=== PATIENT | female | born 1940 | race Caucasian/White ===

== ENCOUNTER 2017-10-12 09:44 | Observation (INO) | payer MEDICARE ==
[~2017-10-12] VITALS: Ht 165.1 cm; Wt 109.6 kg
[2017-10-12] MEDS ORDERED: SODIUM CHLORIDE 0.9% 1000ML 1,000 ML IV ONE (09:55)
[2017-10-12 10:02] LABS: BASOPHILS % (AUTO) 0.6 % (0.0-5.0); EOSINOPHILS % (AUTO) 3.2 % (0.0-8.0); LYMPHOCYTES % (AUTO) 16.2 % (21.0-51.0); MEAN CORPUSCULAR HEMOGLOBIN 28.3 pg (27.0-33.0); MEAN CORPUSCULAR HGB CONC 33.3 g/dL (32.0-36.0); MEAN CORPUSCULAR VOLUME 84.9 fL (79-99); MONOCYTES % (AUTO) 8.3 % (3.0-13.0); NEUTROPHILS % (AUTO) 71.7 % (40.0-77.0); PLATELET COUNT (AUTO) 361 K/uL (130-400); RED BLOOD CELL COUNT(AUTO) 4.24 MIL/uL (4.00-5.50); RED CELL DISTRIBUTION WIDTH 14.7 % (11.0-15.5); WHITE BLOOD COUNT (AUTO) 14.3 K/uL (4.8-10.8)
[2017-10-12 10:10] LABS: CREATININE 1.2 mg/dL (0.5-1.5); POTASSIUM 3.6 mmol/L (3.5-5.1)
[2017-10-12 10:15] LABS: ALBUMIN 3.7 g/dL (3.5-5.0); BILIRUBIN,TOTAL 0.6 mg/dL (0.2-1.0); INR 0.94 (0.85-1.15); PARTIAL THROMBOPLASTIN TIME 21.5 SEC (26.3-35.5); PROTHROMBIN TIME 9.9 SEC (9.6-11.6); TOTAL PROTEIN, SERUM 7.1 g/dL (6.0-8.3)
[2017-10-12] MEDS ORDERED: MAG HYDROX/AL HYDROX/SIMETH ES 30 ML SUSP UDCUP PO PRN (12:30)
[2017-10-12] MEDS ORDERED: LACTULOSE 20 GM/30 ML UDCUP PO PRN (12:30)
[2017-10-12] MEDS ORDERED: ONDANSETRON HCL 4 MG/2 ML VIAL IV PRN (12:30)
[2017-10-12] MEDS ORDERED: GUAIFENESIN-DM 200/20 MG 10 ML PO PRN (12:30)
[2017-10-12] MEDS ORDERED: ACETAMINOPHEN 325 MG TAB PO PRN ×2 (12:30)
[2017-10-12 14:05] VITALS: BP 167/70
[2017-10-12] MEDS ORDERED: AMLO2.5T PO (15:47)
[2017-10-12] MEDS ORDERED: IPRA4AER IH (15:47)
[2017-10-12] MEDS ORDERED: FLUT110HFA IH (15:47)
[2017-10-12] MEDS ORDERED: MONT10TA24 PO (15:47)
[2017-10-12] MEDS ORDERED: CALC-1115 PO (15:47)
[2017-10-12] MEDS ORDERED: VENL75TA63 PO (15:47)
[2017-10-12] MEDS ORDERED: ATOR40TA69 PO (15:47)
[2017-10-12] MEDS ORDERED: LORA10CA9 PO (15:47)
[2017-10-12] MEDS ORDERED: LEVO50TA11 PO (15:47)
[2017-10-12] MEDS ORDERED: METF500T6 PO (15:47)
[2017-10-12] MEDS ORDERED: ESOM40CA PO (15:47)
[2017-10-12] MEDS ORDERED: LOSA1TAB42 PO (15:47)
[2017-10-12 16:30] VITALS: BP 152/59
[2017-10-12 20:12] VITALS: BP 163/77
[2017-10-12] MEDS: FAMOTIDINE/PF 20 MG/2 ML VIAL IV SCH (20:42)
[2017-10-13] MEDS: MONTELUKAST SODIUM 10 MG TAB PO SCH ×2 (00:16→19:41)
[2017-10-13] MEDS: BENZONATATE 100 MG CAPSULE PO SCH ×4 (00:16→19:41)
[2017-10-13] MEDS: METHYLPREDNISOLONE SOD SUCC 125MG/2ML VIAL IVP SCH ×2 (00:16→19:35)
[2017-10-13] MEDS: AZITHROMYCIN 500MG+NS 250ML 250 ML IV SCH ×2 (00:16→19:41)
[2017-10-13 00:25] VITALS: BP 126/64
[2017-10-13] MEDS: IPRATROPIUM/ALBUTEROL SULFATE 3 ML SOLUTION IH SCH ×4 (02:27→20:37)
[2017-10-13 05:23] VITALS: BP 141/66
[2017-10-13 05:36] LABS: INFLUENZA TYPE A NEGATIVE FOR TYPE A (NEG); INFLUENZA TYPE B NEGATIVE FOR TYPE B (NEG)
[2017-10-13] MEDS: LEVOTHYROXINE 50 MCG TABLET PO SCH (06:27)
[2017-10-13] MEDS: INSULIN HUMULIN R 100 UNIT/ML 3ML SQ SCH ×4 (06:29→21:00)
[2017-10-13] MEDS: BUDESONIDE 0.5 MG/2 ML INH IH SCH ×2 (07:08→20:30)
[2017-10-13 07:38] VITALS: BP 151/77
[2017-10-13] MEDS ORDERED: METHYLPREDNISOLONE SOD SUCC 125MG/2ML VIAL IVP SCH (09:00)
[2017-10-13] MEDS: METFORMIN HCL 500 MG TABLET PO SCH ×2 (11:04→16:46)
[2017-10-13] MEDS: HYDROCHLOROTHIAZIDE 25 MG TABLET PO SCH (11:05)
[2017-10-13] MEDS: LOSARTAN 100 MG TABLET PO SCH (11:05)
[2017-10-13] MEDS: CALCIUM 600 + VITAMIN D 400 TABLET PO SCH (11:05)
[2017-10-13] MEDS: AMLODIPINE BESYLATE 2.5 MG TAB PO SCH (11:05)
[2017-10-13] MEDS: LORATADINE 10 MG TABLET PO SCH (11:05)
[2017-10-13] MEDS: VENLAFAXINE HCL 75 MG TAB PO SCH (11:05)
[2017-10-13] MEDS: FAMOTIDINE/PF 20 MG/2 ML VIAL IV SCH ×2 (11:06→19:41)
[2017-10-13 11:40] VITALS: BP 140/65
[2017-10-13 16:45] VITALS: BP 134/72
[2017-10-13 20:00] VITALS: BP 150/64
[2017-10-13] MEDS ORDERED: ATORVASTATIN CALCIUM 40 MG TABLET PO SCH (21:00)
[2017-10-14] VITALS: BP 152/62
[2017-10-14] MEDS: IPRATROPIUM/ALBUTEROL SULFATE 3 ML SOLUTION IH SCH ×3 (01:08→11:56)
[2017-10-14 04:00] VITALS: BP 135/64
[2017-10-14] MEDS: INSULIN HUMULIN R 100 UNIT/ML 3ML SQ SCH ×2 (06:13→11:15)
[2017-10-14] MEDS: BUDESONIDE 0.5 MG/2 ML INH IH SCH (06:24)
[2017-10-14] MEDS: BENZONATATE 100 MG CAPSULE PO SCH (06:32)
[2017-10-14] MEDS: LEVOTHYROXINE 50 MCG TABLET PO SCH (06:32)
[2017-10-14 07:33] VITALS: BP 140/61
[2017-10-14] MEDS: VENLAFAXINE HCL 75 MG TAB PO SCH (09:00)
[2017-10-14] MEDS: LOSARTAN 100 MG TABLET PO SCH (09:31)
[2017-10-14] MEDS: CALCIUM 600 + VITAMIN D 400 TABLET PO SCH (09:31)
[2017-10-14] MEDS: METFORMIN HCL 500 MG TABLET PO SCH (09:32)
[2017-10-14] MEDS: HYDROCHLOROTHIAZIDE 25 MG TABLET PO SCH (09:32)
[2017-10-14] MEDS: LORATADINE 10 MG TABLET PO SCH (09:33)
[2017-10-14] MEDS: AMLODIPINE BESYLATE 2.5 MG TAB PO SCH (09:33)
[2017-10-14] MEDS: FAMOTIDINE/PF 20 MG/2 ML VIAL IV SCH (09:33)
[2017-10-14 11:23] VITALS: BP 140/64
[2017-10-14] MEDS ORDERED: AZIT500T4 PO (11:48)
== END 2017-10-14 13:57 | disposition home or self-care (01) ==
LOC: EDH 09:44 → EDHIP 12:16 → 4BH 14:10
PROVIDERS: ADMIT Family Medicine; ATTEND Family Medicine
DX: R55 Syncope and collapse (principal); J20.9 Acute bronchitis, unspecified; J42 Unspecified chronic bronchitis; E78.5 Hyperlipidemia, unspecified; I10 Essential (primary) hypertension; E11.9 Type 2 diabetes mellitus without complications; E03.9 Hypothyroidism, unspecified; Z96.651 Presence of right artificial knee joint; Z90.710 Acquired absence of both cervix and uterus; R42 Dizziness and giddiness
CPT/HCPCS: 36415; 70450; 71010; 80053; 82550; 82948 ×9; 83880; 84484; 85025; 85610; 85730; 87804 ×2; 93005; 93306; 93880; 94640 ×10; 94664; 96365; 96366; 96375; 96376 ×2; 99285; G0378 ×50; J0456 ×2; J1815 ×2; J2930; J3490 ×4; J7030

== ENCOUNTER 2018-01-18 10:05 | Inpatient (IN) | payer MEDICARE ==
[~2018-01-18] VITALS: Ht 165.1 cm; Wt 107.1 kg
[~2018-01-18 10:05] MED LIST: AMLO2.5T PO; ATOR40TA69 PO; AZIT500T4 PO; CALC-1115 PO; ESOM40CA PO; FLUT110HFA IH; IPRA4AER IH; LEVO50TA11 PO; LORA10CA9 PO; LOSA1TAB42 PO; METF500T6 PO; MONT10TA24 PO; VENL75TA63 PO
[2018-01-18] MEDS ORDERED: SODIUM CHLORIDE 0.9% 500ML 500 ML IV ONE (10:22)
[2018-01-18 10:31] LABS: BASOPHILS % (AUTO) 0.8 % (0.0-5.0); EOSINOPHILS % (AUTO) 2.3 % (0.0-8.0); HEMATOCRIT 37.3 % (36-48); LYMPHOCYTES % (AUTO) 12.8 % (21.0-51.0); MEAN CORPUSCULAR HEMOGLOBIN 27.9 pg (27.0-33.0); MEAN CORPUSCULAR HGB CONC 33.5 g/dL (32.0-36.0); MEAN CORPUSCULAR VOLUME 83.2 fL (79-99); NEUTROPHILS % (AUTO) 77.1 % (40.0-77.0); PLATELET COUNT (AUTO) 331 K/uL (130-400); RED BLOOD CELL COUNT(AUTO) 4.48 MIL/uL (4.00-5.50); RED CELL DISTRIBUTION WIDTH 14.3 % (11.0-15.5); WHITE BLOOD COUNT (AUTO) 19.8 K/uL (4.8-10.8)
[2018-01-18 10:40] LABS: CREATININE 1.1 mg/dL (0.5-1.5); POTASSIUM 3.5 mmol/L (3.5-5.1)
[2018-01-18 10:42] LABS: INR 0.95 (0.85-1.15); PARTIAL THROMBOPLASTIN TIME 25.4 SEC (26.3-35.5)
[2018-01-18 10:45] LABS: B-TYPE NATRIURETIC PEPTIDE 18 pg/mL (0-100)
[2018-01-18 10:56] LABS: ALBUMIN 3.5 g/dL (3.5-5.0); BILIRUBIN,TOTAL 0.7 mg/dL (0.2-1.0); CREATINE KINASE MB 0.5 ng/mL (0.5-3.6); TOTAL PROTEIN, SERUM 7.1 g/dL (6.0-8.3)
[2018-01-18 12:37] LABS: BASOPHILS % (AUTO) 0.5 % (0.0-5.0); EOSINOPHILS % (AUTO) 2.1 % (0.0-8.0); HEMATOCRIT 35.6 % (36-48); LYMPHOCYTES % (AUTO) 12.8 % (21.0-51.0); MEAN CORPUSCULAR HEMOGLOBIN 27.8 pg (27.0-33.0); MEAN CORPUSCULAR HGB CONC 33.2 g/dL (32.0-36.0); MEAN CORPUSCULAR VOLUME 83.9 fL (79-99); MONOCYTES % (AUTO) 7.6 % (3.0-13.0); PLATELET COUNT (AUTO) 304 K/uL (130-400); RED BLOOD CELL COUNT(AUTO) 4.24 MIL/uL (4.00-5.50); RED CELL DISTRIBUTION WIDTH 14.2 % (11.0-15.5); WHITE BLOOD COUNT (AUTO) 17.6 K/uL (4.8-10.8)
[2018-01-18] MEDS ORDERED: GUAIFENESIN-DM 200/20 MG 10 ML PO PRN (13:45)
[2018-01-18] MEDS ORDERED: ONDANSETRON HCL 4 MG/2 ML VIAL IV PRN (13:45)
[2018-01-18] MEDS ORDERED: MAG HYDROX/AL HYDROX/SIMETH ES 30 ML SUSP UDCUP PO PRN (13:45)
[2018-01-18] MEDS ORDERED: ACETAMINOPHEN 325 MG TAB PO PRN ×2 (13:45)
[2018-01-18 14:19] LABS: HEMATOCRIT 35.7 % (36-48); MEAN CORPUSCULAR HEMOGLOBIN 28.1 pg (27.0-33.0); MEAN CORPUSCULAR HGB CONC 33.3 g/dL (32.0-36.0); MEAN CORPUSCULAR VOLUME 84.4 fL (79-99); NUCLEATED RED BLOOD CELLS 0.1 % (0.0-0.19); PLATELET COUNT (AUTO) 112 K/uL (130-400); RED BLOOD CELL COUNT(AUTO) 4.23 MIL/uL (4.00-5.50); RED CELL DISTRIBUTION WIDTH 14.6 % (11.0-15.5)
[2018-01-18 15:54] VITALS: BP 148/59
[2018-01-18 20:05] VITALS: BP 136/63
[2018-01-18] MEDS ORDERED: POTASSIUM CHLORIDE 20MEQ/100ML 100 ML IV PRN (23:15)
[2018-01-18] MEDS ORDERED: DEXTROSE 50%-WATER 50 ML DISP.SYRIN IV PRN (23:15)
[2018-01-18] MEDS ORDERED: POTASSIUM CHLORIDE 10% ELIXIR 20 MEQ/15 ML UDCUP PO PRN (23:15)
[2018-01-18] MEDS ORDERED: LIDOCAINE HCL-MPF 1% 2ML VIAL IVP PRN (23:15)
[2018-01-18] MEDS ORDERED: INSULIN HUMULIN R 100 UNIT/ML 3ML SQ SCH (23:15)
[2018-01-18] MEDS ORDERED: GLUCAGON 1MG KIT 1 MG ML IM PRN (23:15)
[2018-01-18 23:43] VITALS: BP 145/55
[2018-01-19] MEDS: SODIUM CHLORIDE 0.9% 1000ML 1,000 ML IV SCH ×2 (00:38→19:15)
[2018-01-19 03:33] LABS: APPEARANCE,URINE Clear (CLEAR); BILIRUBIN,URINE Negative (NEGATIVE); COLOR,URINE Dark Yellow (YELLOW); GLUCOSE, URINE (UA) Negative (NEGATIVE); KETONES,URINE 15 mg/dL (NEGATIVE); LEUKOCYTE ESTERASE ,URINE Trace (NEGATIVE); NITRATE,URINE Negative (NEGATIVE); OCCULT BLOOD,URINE Negative (NEGATIVE); PROTEIN,URINE Negative (NEGATIVE)
[2018-01-19 03:43] LABS: BACTERIA,URINE None Seen /HPF (None Seen); MUCUS,URINE Many LPF (None Seen); RBC,URINE None Seen /HPF (0-1); SQUAMOUS EPITHELIAL CELL,UR None Seen /HPF (0-2)
[2018-01-19 04:01] VITALS: BP 124/59
[2018-01-19 04:38] LABS: HEMATOCRIT 32.2 % (36-48); MEAN CORPUSCULAR HEMOGLOBIN 28.8 pg (27.0-33.0); MEAN CORPUSCULAR HGB CONC 34.5 g/dL (32.0-36.0); MEAN CORPUSCULAR VOLUME 83.5 fL (79-99); PLATELET COUNT (AUTO) 318 K/uL (130-400); RED BLOOD CELL COUNT(AUTO) 3.86 MIL/uL (4.00-5.50); RED CELL DISTRIBUTION WIDTH 14.2 % (11.0-15.5); WHITE BLOOD COUNT (AUTO) 15.9 K/uL (4.8-10.8)
[2018-01-19 04:48] LABS: POTASSIUM 3.5 mmol/L (3.5-5.1)
[2018-01-19] MEDS: INSULIN HUMULIN R 100 UNIT/ML 3ML SQ SCH ×4 (06:00→18:00)
[2018-01-19 07:40] VITALS: BP 143/70
[2018-01-19] MEDS: PANTOPRAZOLE 40 MG/VIAL IVP SCH (09:55)
[2018-01-19 11:10] VITALS: BP 138/59
[2018-01-19] MEDS: IPRATROPIUM/ALBUTEROL SULFATE 3 ML SOLUTION IH SCH ×3 (11:11→23:27)
[2018-01-19] MEDS ORDERED: ONDANSETRON HCL MDV 20ML 2 MG/ML VIAL IV PRN (12:40)
[2018-01-19 15:27] VITALS: BP 134/70
[2018-01-19] MEDS: METFORMIN HCL 500 MG TABLET PO SCH (18:10)
[2018-01-19] MEDS ORDERED: LACTULOSE 20 GM/30 ML UDCUP PO SCH (19:00)
[2018-01-19] MEDS ORDERED: PEG 3350/NA SULF,BICARB,CL/KCL 4000 ML SOLN PO SCH (19:00)
[2018-01-19] MEDS: BUDESONIDE 0.5 MG/2 ML INH IH SCH (19:21)
[2018-01-19 19:47] VITALS: BP 152/55
[2018-01-19] MEDS ORDERED: MAGNESIUM CITRATE 296 ML SOLUTION PO SCH (20:00)
[2018-01-19] MEDS ORDERED: LACTULOSE 20 GM/30 ML UDCUP PO ONE (20:00)
[2018-01-19] MEDS ORDERED: PEG 3350/NA SULF,BICARB,CL/KCL 4000 ML SOLN PO ONE (20:00)
[2018-01-19] MEDS ORDERED: BISACODYL 5 MG TABLET.DR PO ONE (20:45)
[2018-01-19] MEDS: ATORVASTATIN CALCIUM 40 MG TABLET PO SCH (21:09)
[2018-01-19 22:59] VITALS: BP 151/77
[2018-01-20] VITALS (15 sets, daily range): BP systolic 125–183; BP diastolic 32–92
[2018-01-20 03:41] LABS: HEMATOCRIT 35.4 % (36-48); MEAN CORPUSCULAR HEMOGLOBIN 28.1 pg (27.0-33.0); MEAN CORPUSCULAR HGB CONC 33.6 g/dL (32.0-36.0); MEAN CORPUSCULAR VOLUME 83.7 fL (79-99); PLATELET COUNT (AUTO) 383 K/uL (130-400); RED BLOOD CELL COUNT(AUTO) 4.22 MIL/uL (4.00-5.50); RED CELL DISTRIBUTION WIDTH 14.1 % (11.0-15.5); WHITE BLOOD COUNT (AUTO) 16.4 K/uL (4.8-10.8)
[2018-01-20 03:51] LABS: INR 0.96 (0.85-1.15); PROTHROMBIN TIME 9.9 SEC (9.6-11.6)
[2018-01-20 03:53] LABS: ALBUMIN 3.6 g/dL (3.5-5.0); BILIRUBIN,TOTAL 0.5 mg/dL (0.2-1.0); CREATININE 1.1 mg/dL (0.5-1.5); POTASSIUM 3.6 mmol/L (3.5-5.1); TOTAL PROTEIN, SERUM 7.3 g/dL (6.0-8.3)
[2018-01-20] MEDS: INSULIN HUMULIN R 100 UNIT/ML 3ML SQ SCH ×5 (06:00→21:00)
[2018-01-20] MEDS: LEVOTHYROXINE 50 MCG TABLET PO SCH (06:30)
[2018-01-20] MEDS: IPRATROPIUM/ALBUTEROL SULFATE 3 ML SOLUTION IH SCH ×4 (06:45→23:34)
[2018-01-20] MEDS: BUDESONIDE 0.5 MG/2 ML INH IH SCH ×2 (06:53→23:45)
[2018-01-20] MEDS: METFORMIN HCL 500 MG TABLET PO SCH ×2 (08:00→16:27)
[2018-01-20] MEDS: AZITHROMYCIN 500MG+NS 250ML 250 ML IV SCH (09:57)
[2018-01-20] MEDS: PANTOPRAZOLE 40 MG/VIAL IVP SCH (09:57)
[2018-01-20] MEDS ORDERED: PROPOFOL 10 MG/ML 20ML VIAL IV ONE ×2 (12:45→13:11)
[2018-01-20] MEDS ORDERED: LACTULOSE 20 GM/30 ML UDCUP PO SCH ×2 (14:45→15:00)
[2018-01-20] MEDS ORDERED: MAGNESIUM CITRATE 296 ML SOLUTION PO SCH (15:30)
[2018-01-20] MEDS ORDERED: PEG 3350/NA SULF,BICARB,CL/KCL 4000 ML SOLN PO SCH (16:00)
[2018-01-20] MEDS: CALCIUM 600 + VITAMIN D 400 TABLET PO SCH (16:20)
[2018-01-20] MEDS: HYDROCHLOROTHIAZIDE 25 MG TABLET PO SCH (16:23)
[2018-01-20] MEDS: AMLODIPINE BESYLATE 2.5 MG TAB PO SCH (16:23)
[2018-01-20] MEDS: LOSARTAN 100 MG TABLET PO SCH (16:23)
[2018-01-20] MEDS: MONTELUKAST SODIUM 10 MG TAB PO SCH (16:24)
[2018-01-20] MEDS: LORATADINE 10 MG TABLET PO SCH (16:24)
[2018-01-20] MEDS: VENLAFAXINE HCL XR 37.5 MG CAP PO SCH (16:25)
[2018-01-20] MEDS: SODIUM CHLORIDE 0.9% 1000ML 1,000 ML IV SCH (16:25)
[2018-01-20] MEDS ORDERED: LACTULOSE 20 GM/30 ML UDCUP ONE (18:06)
[2018-01-20] MEDS: ATORVASTATIN CALCIUM 40 MG TABLET PO SCH (22:50)
[2018-01-21] VITALS (15 sets, daily range): BP systolic 114–161; BP diastolic 52–92
[2018-01-21 04:48] LABS: HEMATOCRIT 30.7 % (36-48); MEAN CORPUSCULAR HGB CONC 34.7 g/dL (32.0-36.0); MEAN CORPUSCULAR VOLUME 83.5 fL (79-99); PLATELET COUNT (AUTO) 337 K/uL (130-400); RED BLOOD CELL COUNT(AUTO) 3.68 MIL/uL (4.00-5.50); RED CELL DISTRIBUTION WIDTH 14.2 % (11.0-15.5); WHITE BLOOD COUNT (AUTO) 10.5 K/uL (4.8-10.8)
[2018-01-21 05:04] LABS: CREATININE 0.9 mg/dL (0.5-1.5); POTASSIUM 3.1 mmol/L (3.5-5.1)
[2018-01-21] MEDS: LEVOTHYROXINE 50 MCG TABLET PO SCH (06:30)
[2018-01-21] MEDS: INSULIN HUMULIN R 100 UNIT/ML 3ML SQ SCH ×4 (06:36→21:00)
[2018-01-21] MEDS: BUDESONIDE 0.5 MG/2 ML INH IH SCH ×2 (06:47→23:21)
[2018-01-21] MEDS: IPRATROPIUM/ALBUTEROL SULFATE 3 ML SOLUTION IH SCH ×3 (06:47→23:21)
[2018-01-21] MEDS: METFORMIN HCL 500 MG TABLET PO SCH ×2 (08:00→17:07)
[2018-01-21] MEDS ORDERED: PROPOFOL 10 MG/ML 20ML VIAL IV ONE (13:50)
[2018-01-21] MEDS ORDERED: LIDOCAINE HCL 2% 20ML ONE (13:50)
[2018-01-21] MEDS ORDERED: FENTANYL CITRATE PF 50 MCG/1 ML 2ML VIAL ONE (13:58)
[2018-01-21] MEDS ORDERED: PHARMACY COMMUNICATION MISC SCH (15:45)
[2018-01-21] MEDS: AZITHROMYCIN 500MG+NS 250ML 250 ML IV SCH (17:03)
[2018-01-21] MEDS: HYDROCHLOROTHIAZIDE 25 MG TABLET PO SCH (17:05)
[2018-01-21] MEDS: PANTOPRAZOLE 40 MG/VIAL IVP SCH (17:05)
[2018-01-21] MEDS: LEVOFLOXACIN 500 MG TABLET PO SCH (17:06)
[2018-01-21] MEDS: CALCIUM 600 + VITAMIN D 400 TABLET PO SCH (17:06)
[2018-01-21] MEDS: AMLODIPINE BESYLATE 2.5 MG TAB PO SCH (17:06)
[2018-01-21] MEDS: LOSARTAN 100 MG TABLET PO SCH (17:06)
[2018-01-21] MEDS: MONTELUKAST SODIUM 10 MG TAB PO SCH (17:07)
[2018-01-21] MEDS: VENLAFAXINE HCL XR 37.5 MG CAP PO SCH (17:07)
[2018-01-21] MEDS: LORATADINE 10 MG TABLET PO SCH (17:08)
[2018-01-21] MEDS: SODIUM CHLORIDE 0.9% 1000ML 1,000 ML IV SCH (17:08)
[2018-01-21] MEDS ORDERED: MESALAMINE 4 GM/60 ML BOTTLE RC SCH (21:00)
[2018-01-21] MEDS: ATORVASTATIN CALCIUM 40 MG TABLET PO SCH (23:04)
[2018-01-21] MEDS: METRONIDAZOLE 500 MG TABLET PO SCH (23:04)
[2018-01-22 04:00] VITALS: BP 130/73
[2018-01-22 04:55] LABS: CREATININE 0.9 mg/dL (0.5-1.5)
[2018-01-22] MEDS: LEVOTHYROXINE 50 MCG TABLET PO SCH (06:53)
[2018-01-22] MEDS: POTASSIUM CHLORIDE 20 MEQ ERTAB PO PRN ×3 (06:54→11:24)
[2018-01-22] MEDS: IPRATROPIUM/ALBUTEROL SULFATE 3 ML SOLUTION IH SCH ×2 (06:54→11:11)
[2018-01-22] MEDS: BUDESONIDE 0.5 MG/2 ML INH IH SCH (06:54)
[2018-01-22] MEDS: INSULIN HUMULIN R 100 UNIT/ML 3ML SQ SCH (06:55)
[2018-01-22] MEDS: CALCIUM 600 + VITAMIN D 400 TABLET PO SCH (08:54)
[2018-01-22] MEDS: VENLAFAXINE HCL XR 37.5 MG CAP PO SCH (08:54)
[2018-01-22] MEDS: HYDROCHLOROTHIAZIDE 25 MG TABLET PO SCH (08:54)
[2018-01-22] MEDS: AMLODIPINE BESYLATE 2.5 MG TAB PO SCH (08:54)
[2018-01-22] MEDS: LOSARTAN 100 MG TABLET PO SCH (08:54)
[2018-01-22] MEDS: METFORMIN HCL 500 MG TABLET PO SCH (08:54)
[2018-01-22] MEDS: LORATADINE 10 MG TABLET PO SCH (08:54)
[2018-01-22] MEDS: MONTELUKAST SODIUM 10 MG TAB PO SCH (08:54)
[2018-01-22] MEDS: METRONIDAZOLE 500 MG TABLET PO SCH (08:54)
[2018-01-22] MEDS: PANTOPRAZOLE 40 MG/VIAL IVP SCH (08:55)
[2018-01-22] MEDS: LEVOFLOXACIN 500 MG TABLET PO SCH (08:55)
[2018-01-22] MEDS ORDERED: PANT40TA25 PO (09:56)
[2018-01-22] MEDS ORDERED: METR500T PO (09:56)
[2018-01-22] MEDS ORDERED: CIPR-245 PO (09:56)
[2018-01-22 10:12] VITALS: BP 141/63
[2018-01-22 12:35] VITALS: BP 135/65
== END 2018-01-22 13:35 | disposition home or self-care (01) | DRG 393 ==
LOC: EDH 10:05 → OBSVTOIN 13:48 → EDHIP 13:48 → 3CH 15:50
PROVIDERS: ADMIT Family Medicine; ATTEND Family Medicine
PROC: 0DB68ZX Excision of Stomach, Via Natural or Artificial Opening Endoscopic, Diagnostic (ICD-10-PCS; principal; 2018-01-20)
PROC: 0DB48ZX Excision of Esophagogastric Junction, Via Natural or Artificial Opening Endoscopic, Diagnostic (ICD-10-PCS; 2018-01-20)
PROC: 0DBP8ZX Excision of Rectum, Via Natural or Artificial Opening Endoscopic, Diagnostic (ICD-10-PCS; 2018-01-20)
DX: K55.9 Vascular disorder of intestine, unspecified (principal); K29.71 Gastritis, unspecified, with bleeding; K63.3 Ulcer of intestine; E11.9 Type 2 diabetes mellitus without complications; D62 Acute posthemorrhagic anemia; K52.9 Noninfective gastroenteritis and colitis, unspecified; K20.9 Esophagitis, unspecified; E03.9 Hypothyroidism, unspecified; J20.9 Acute bronchitis, unspecified; I10 Essential (primary) hypertension; E78.5 Hyperlipidemia, unspecified; M19.90 Unspecified osteoarthritis, unspecified site; E66.9 Obesity, unspecified; Z96.651 Presence of right artificial knee joint; K22.70 Barrett's esophagus without dysplasia; Z82.0 Family history of epilepsy and other diseases of the nervous system; Z83.3 Family history of diabetes mellitus; Z90.710 Acquired absence of both cervix and uterus; Z68.39 Body mass index [BMI] 39.0-39.9, adult
CPT/HCPCS: 36415; 71045; 71046; 80048; 80053; 81001; 82270; 82550; 82553; 82948; 83874; 83880; 84484; 85025; 85027; 85610; 85730; 86677; 86850; 86900; 86901; 87088; 88305; 88312; 93005; 94640; 94664; C9113; J0456; J2704; J3010; J3490; J7030; J7040

== ENCOUNTER → 2018-03-16 | Outpatient (CLI) | payer MEDICARE ==
[~2018-03-16] MED LIST changes: -AZIT500T4 PO; +CIPR-245 PO; +METR500T PO; +PANT40TA25 PO
== END | disposition home or self-care (01) ==
LOC: RAH 07:53
PROVIDERS: ATTEND Internal Medicine Cardiovascular Disease
DX: I77.4 Celiac artery compression syndrome (principal); K55.1 Chronic vascular disorders of intestine
CPT/HCPCS: 76775

== ENCOUNTER → 2018-10-13 | Outpatient (CLI) | payer MEDICARE ==
[~2018-10-13] MED LIST changes: -AMLO2.5T PO; +AMLO2.5T4 PO; +METF-444 PO; -METF500T6 PO
== END | disposition home or self-care (01) ==
LOC: SHCH 10:55
PROVIDERS: ATTEND Internal Medicine Cardiovascular Disease
DX: R00.2 Palpitations (principal)
CPT/HCPCS: 93306

== ENCOUNTER → 2018-10-15 | Outpatient (CLI) | payer MEDICARE ==
[~2018-10-15] VITALS: Ht 165.1 cm; Wt 103.0 kg
[~2018-10-15] MED LIST changes: +REGADENOSON 0.4 MG/5 ML PF SYG IVP SCH
== END | disposition home or self-care (01) ==
LOC: SHCH 08:16
PROVIDERS: ATTEND Internal Medicine Cardiovascular Disease
DX: R06.00 Dyspnea, unspecified (principal); I51.7 Cardiomegaly
CPT/HCPCS: 78452; 93017; 96374; A9500 ×2; J2785

== ENCOUNTER 2020-11-19 09:51 | Inpatient (IN) | payer MEDICARE, OTHER ==
[~2020-11-19] VITALS: Ht 170.2 cm; Wt 102.3 kg
[~2020-11-19 09:51] MED LIST changes: -CALC-1115 PO; +CALC-1205 PO; -CIPR-245 PO; +CIPR500T10 PO; +MONT-39 PO; -MONT10TA24 PO; -PANT40TA25 PO; +PANT40TA55 PO; -REGADENOSON 0.4 MG/5 ML PF SYG IVP SCH; +VENL-191 PO; -VENL75TA63 PO
[2020-11-19 10:24] LABS: BASOPHILS % (AUTO) 0.7 % (0.0-5.0); EOSINOPHILS % (AUTO) 0.5 % (0.0-8.0); HEMATOCRIT 40.6 % (36-48); LYMPHOCYTES % (AUTO) 18.7 % (21.0-51.0); MEAN CORPUSCULAR HEMOGLOBIN 28.3 pg (27.0-33.0); MEAN CORPUSCULAR VOLUME 85.7 fL (79-99); MONOCYTES % (AUTO) 7.8 % (3.0-13.0); NEUTROPHILS % (AUTO) 71.8 % (40.0-77.0); PLATELET COUNT (AUTO) 218 K/uL (130-400); RED BLOOD CELL COUNT(AUTO) 4.74 MIL/uL (4.00-5.50); RED CELL DISTRIBUTION WIDTH 12.7 % (11.0-15.5); WHITE BLOOD COUNT (AUTO) 4.3 K/uL (4.8-10.8)
[2020-11-19 10:31] LABS: CARBON DIOXIDE 25 mmol/L (21-32); CHLORIDE 98 mmol/L (101-111); CREATININE 0.4 mg/dL (0.5-1.5); GLOMERULAR FILTR. RATE CALC 162 mL/min (>60); GLUCOSE,RANDOM 113 mg/dL (70-105); POTASSIUM 4.3 mmol/L (3.5-5.1); SODIUM SERUM 135 mmol/L (136-145); UREA NITROGEN, BLOOD 14 mg/dL (7-18)
[2020-11-19 10:32] LABS: INR 0.97 (0.85-1.15); PROTHROMBIN TIME 10.6 SEC (9.6-11.6)
[2020-11-19 10:33] LABS: PARTIAL THROMBOPLASTIN TIME 26.8 SEC (26.3-35.5)
[2020-11-19 10:42] LABS: ALANINE AMINOTRANSFERASE 28 U/L (12-78); ALBUMIN 3.3 g/dL (3.5-5.0); ASPARTATE AMINOTRANSFERASE 42 U/L (10-37); BILIRUBIN,TOTAL 0.5 mg/dL (0.2-1.0); CREATINE KINASE, TOTAL 62 U/L (21-232); MYOGLOBIN 58 ng/mL (10-92); TOTAL PROTEIN, SERUM 6.6 g/dL (6.0-8.3); TROPONIN I < 0.04 ng/mL (0.00-0.06)
[2020-11-19 10:54] LABS: B-TYPE NATRIURETIC PEPTIDE 8 pg/mL (0-100)
[2020-11-19] MEDS ORDERED: CEFTRIAXONE 2GM VIAL ONE (11:31)
[2020-11-19] MEDS ORDERED: DEXAMETHASONE SOD PHOSPHATE 10MG/ML 1ML VIAL ONE (11:31)
[2020-11-19] MEDS ORDERED: 0.9%NACL 100ML 100 ML IV ONE (11:32)
[2020-11-19 11:43] LABS: ABG BASE EXCESS 3.6 mmol/L (-2.0-3.0); ABG HCO3 23.4 mmol/L (21.0-28.0); ABG OXYGEN SATURATION 95.1 % (95.0-99.0); ABG PCO2 24 mmHg (32-45)
[2020-11-19] MEDS: DOXYCYCLINE HYCLATE 100 MG TABLET PO SCH ×2 (12:25→21:00)
[2020-11-19 12:57] LABS: CRP QUANTITATIVE 28.6 mg/L (0.00-9.0)
[2020-11-19] MEDS ORDERED: 0.9%NACL 1000ML 500 ML IV ONE (13:30)
[2020-11-19] MEDS ORDERED: 0.9% NACL 500ML IV.SOLN 500 ML IV ONE (13:52)
[2020-11-19 14:27] LABS: APPEARANCE,URINE Cloudy (CLEAR); BILIRUBIN,URINE Negative (NEGATIVE); COLOR,URINE Yellow (YELLOW); GLUCOSE, URINE (UA) Negative (NEGATIVE); KETONES,URINE 15 mg/dL (NEGATIVE); LEUKOCYTE ESTERASE ,URINE Moderate (NEGATIVE); NITRATE,URINE Positive (NEGATIVE); OCCULT BLOOD,URINE Negative (NEGATIVE); PROTEIN,URINE Trace mg/dL (NEGATIVE); UROBILINOGEN,URINE 0.2 mg/dL (0.2-1.0)
[2020-11-19 14:58] LABS: BACTERIA,URINE Moderate /HPF (None Seen)
[2020-11-19 14:59] LABS: MUCUS,URINE Few LPF (None Seen); SQUAMOUS EPITHELIAL CELL,UR Few /HPF (0-2)
[2020-11-19] MEDS ORDERED: SODIUM BICARB 8.4% 50ML SYRINGE IVP ONE (16:27)
[2020-11-20 04:05] LABS: ABG BASE EXCESS 1.1 mmol/L (-2.0-3.0); ABG HCO3 24.8 mmol/L (21.0-28.0); ABG OXYGEN SATURATION 94.6 % (95.0-99.0); ABG PCO2 37 mmHg (32-45)
[2020-11-20 04:37] LABS: BASOPHILS % (AUTO) 0.3 % (0.0-5.0); LYMPHOCYTES % (AUTO) 26.7 % (21.0-51.0); MEAN CORPUSCULAR HEMOGLOBIN 28.6 pg (27.0-33.0); MEAN CORPUSCULAR HGB CONC 32.8 g/dL (32.0-36.0); MEAN CORPUSCULAR VOLUME 87.2 fL (79-99); MONOCYTES % (AUTO) 12.8 % (3.0-13.0); NEUTROPHILS % (AUTO) 59.5 % (40.0-77.0); PLATELET COUNT (AUTO) 213 K/uL (130-400); RED BLOOD CELL COUNT(AUTO) 4.47 MIL/uL (4.00-5.50); RED CELL DISTRIBUTION WIDTH 12.6 % (11.0-15.5); WHITE BLOOD COUNT (AUTO) 2.9 K/uL (4.8-10.8)
[2020-11-20 04:42] LABS: CRP QUANTITATIVE 34.1 mg/L (0.00-9.0); POTASSIUM 3.7 mmol/L (3.5-5.1)
[2020-11-20] MEDS ORDERED: DOXYCYCLINE HYCLATE 100 MG TABLET PO ONE (07:44)
[2020-11-20] MEDS: DOXYCYCLINE HYCLATE 100 MG TABLET PO SCH ×2 (09:00→21:00)
[2020-11-20 09:05] LABS: HEMOGLOBIN A1C 6.3 % (4.0-6.0)
[2020-11-20] MEDS ORDERED: AMLODIPINE 5 MG TAB PO SCH (10:45)
[2020-11-20] MEDS: INSULIN HUMULIN R 100 UNIT/ML 3ML SQ SCH ×3 (11:30→21:00)
[2020-11-20] MEDS ORDERED: DEXAMETHASONE SOD PHOSPHATE 10MG/ML 1ML VIAL ONE (12:00)
[2020-11-20] MEDS ORDERED: AMLODIPINE 5 MG TAB ONE (12:00)
[2020-11-20] MEDS ORDERED: ENOXAPARIN SODIUM 40 MG/0.4 ML SYRINGE SQ ONE (12:01)
[2020-11-20] MEDS ORDERED: CEFTRIAXONE 1G VIAL ONE (12:01)
[2020-11-20] MEDS: CEFTRIAXONE 1G VIAL IVP SCH (12:15)
[2020-11-20] MEDS ORDERED: DEXAMETHASONE SOD PHOSPHATE 4 MG/ML 1ML VIAL IVP SCH (14:00)
[2020-11-20] MEDS ORDERED: PHARMACY COMMUNICATION MISC SCH (18:45)
[2020-11-20] MEDS ORDERED: COMPOUND IV REFRIGERATED 1 EACH IVSOLN MISC PRN (20:00)
[2020-11-20] MEDS ORDERED: REMDESIVIR (EUA) 520 200 MG in 0.9% NACL 250ML 250 ML IV ONE (20:00)
[2020-11-21] VITALS (7 sets, daily range): BP systolic 122–150; BP diastolic 41–72
[2020-11-21] MEDS ORDERED: GABA300S PO (01:16)
[2020-11-21] MEDS ORDERED: VITA1CAP17 PO (01:16)
[2020-11-21] MEDS ORDERED: AMLO-257 PO (01:16)
[2020-11-21] MEDS ORDERED: SENN-304 PO (01:16)
[2020-11-21] MEDS ORDERED: FERR324T4 PO (01:16)
[2020-11-21] MEDS ORDERED: 0.9% NACL 250ML 250 ML IV ONE (04:43)
[2020-11-21 05:18] LABS: BASOPHILS % (AUTO) 0.2 % (0.0-5.0); LYMPHOCYTES % (AUTO) 11.7 % (21.0-51.0); MEAN CORPUSCULAR HEMOGLOBIN 28.1 pg (27.0-33.0); MEAN CORPUSCULAR VOLUME 87.7 fL (79-99); MONOCYTES % (AUTO) 8.3 % (3.0-13.0); NEUTROPHILS % (AUTO) 79.2 % (40.0-77.0); PLATELET COUNT (AUTO) 243 K/uL (130-400); RED BLOOD CELL COUNT(AUTO) 4.56 MIL/uL (4.00-5.50); RED CELL DISTRIBUTION WIDTH 12.6 % (11.0-15.5)
[2020-11-21 05:36] LABS: ALANINE AMINOTRANSFERASE 32 U/L (12-78); ALBUMIN 3.1 g/dL (3.5-5.0); ASPARTATE AMINOTRANSFERASE 34 U/L (10-37); BILIRUBIN,TOTAL 0.3 mg/dL (0.2-1.0); CARBON DIOXIDE 26 mmol/L (21-32); CHLORIDE 103 mmol/L (101-111); CREATININE 1.1 mg/dL (0.5-1.5); GLOMERULAR FILTR. RATE CALC 51 mL/min (>60); GLUCOSE,RANDOM 138 mg/dL (70-105); POTASSIUM 4.1 mmol/L (3.5-5.1); SODIUM SERUM 140 mmol/L (136-145); UREA NITROGEN, BLOOD 22 mg/dL (7-18)
[2020-11-21] MEDS: REMDESIVIR LABS MISC SCH (06:00)
[2020-11-21] MEDS: INSULIN HUMULIN R 100 UNIT/ML 3ML SQ SCH ×4 (07:30→21:00)
[2020-11-21 08:48] LABS: BILIRUBIN,DIRECT < 0.1 mg/dL (0.0-0.3)
[2020-11-21] MEDS: MAG/ALUM/SIMETH 30 ML UDCUP PO PRN (09:57)
[2020-11-21] MEDS: ONDANSETRON 4MG INJ IVP PRN ×2 (09:57→20:20)
[2020-11-21] MEDS: DOXYCYCLINE HYCLATE 100 MG TABLET PO SCH ×2 (10:15→21:15)
[2020-11-21] MEDS: PANTOPRAZOLE 40 MG TAB DR PO SCH (10:15)
[2020-11-21] MEDS: CEFTRIAXONE 1G VIAL IVP SCH (11:35)
[2020-11-21] MEDS: ENOXAPARIN SODIUM 40 MG/0.4 ML SYRINGE SQ SCH (11:35)
[2020-11-21] MEDS: REMDESIVIR (EUA) 520 100 MG in 0.9% NACL 250ML 250 ML IV SCH (14:12)
[2020-11-21] MEDS ORDERED: LACTULOSE 20 GM/30 ML UDCUP PO SCH (18:45)
[2020-11-21] MEDS ORDERED: REMDESIVIR (EUA) 520 100 MG in 0.9% NACL 250ML 250 ML IV SCH (20:00)
[2020-11-21] MEDS: MORPHINE 2 MG SYG IVP PRN (21:16)
[2020-11-22] VITALS (7 sets, daily range): BP systolic 115–148; BP diastolic 47–60
[2020-11-22] MEDS: MORPHINE 2 MG SYG IVP PRN (01:32)
[2020-11-22] MEDS: ONDANSETRON 4MG INJ IVP PRN ×2 (04:03→08:09)
[2020-11-22 05:58] LABS: BASOPHILS % (AUTO) 0.3 % (0.0-5.0); HEMATOCRIT 37.8 % (36-48); LYMPHOCYTES % (AUTO) 18.1 % (21.0-51.0); MEAN CORPUSCULAR HEMOGLOBIN 28.4 pg (27.0-33.0); MEAN CORPUSCULAR HGB CONC 32.3 g/dL (32.0-36.0); MEAN CORPUSCULAR VOLUME 87.9 fL (79-99); MONOCYTES % (AUTO) 11.3 % (3.0-13.0); NEUTROPHILS % (AUTO) 69.3 % (40.0-77.0); PLATELET COUNT (AUTO) 224 K/uL (130-400); RED CELL DISTRIBUTION WIDTH 12.7 % (11.0-15.5); WHITE BLOOD COUNT (AUTO) 5.8 K/uL (4.8-10.8)
[2020-11-22 06:14] LABS: CREATININE 1.1 mg/dL (0.5-1.5); CRP QUANTITATIVE 66.1 mg/L (0.00-9.0); POTASSIUM 3.5 mmol/L (3.5-5.1)
[2020-11-22] MEDS: INSULIN HUMULIN R 100 UNIT/ML 3ML SQ SCH ×4 (06:14→20:02)
[2020-11-22] MEDS: DOXYCYCLINE HYCLATE 100 MG TABLET PO SCH (08:12)
[2020-11-22] MEDS: PANTOPRAZOLE 40 MG TAB DR PO SCH (08:12)
[2020-11-22] MEDS: ENOXAPARIN SODIUM 40 MG/0.4 ML SYRINGE SQ SCH (08:12)
[2020-11-22] MEDS ORDERED: DEXAMETHASONE SOD PHOSPHATE 4 MG/ML 1ML VIAL IVP SCH (09:00)
[2020-11-22 09:16] LABS: BILIRUBIN,DIRECT 0.1 mg/dL (0.0-0.3); BILIRUBIN,TOTAL 0.4 mg/dL (0.2-1.0); TOTAL PROTEIN, SERUM 6.6 g/dL (6.0-8.3)
[2020-11-22] MEDS ORDERED: FERROUS SULFATE 325 MG TABLET.DR PO SCH (09:30)
[2020-11-22] MEDS: REMDESIVIR LABS MISC SCH (10:00)
[2020-11-22] MEDS ORDERED: METOCLOPRAMIDE 5 MG TABLET PO SCH (10:45)
[2020-11-22] MEDS: DEXAMETHASONE SOD PHOSPHATE 4 MG/ML 1ML VIAL IVP SCH ×2 (11:38→21:31)
[2020-11-22] MEDS: CEFTRIAXONE 1G VIAL IVP SCH (11:38)
[2020-11-22] MEDS ORDERED: NON-FORMULARY MEDICATION 1 EACH (Gabapentin 300 MG) PO SCH (14:00)
[2020-11-22] MEDS: REMDESIVIR (EUA) 520 100 MG in 0.9% NACL 250ML 250 ML IV SCH (14:22)
[2020-11-22] MEDS: GABAPENTIN 300 MG CAPSULE PO SCH ×2 (14:48→21:31)
[2020-11-22] MEDS ORDERED: [UNRECOGNIZED DRUG - REMARK] MISC SCH (17:15)
[2020-11-22] MEDS: AMLODIPINE 5 MG TAB PO SCH (21:31)
[2020-11-22] MEDS: MAG/ALUM/SIMETH 30 ML UDCUP PO PRN (22:15)
[2020-11-23 03:27] VITALS: BP 128/48
[2020-11-23 05:42] LABS: BASOPHILS % (AUTO) 0.2 % (0.0-5.0); HEMATOCRIT 38.3 % (36-48); LYMPHOCYTES % (AUTO) 16.6 % (21.0-51.0); MEAN CORPUSCULAR HEMOGLOBIN 28.2 pg (27.0-33.0); MEAN CORPUSCULAR HGB CONC 32.6 g/dL (32.0-36.0); MEAN CORPUSCULAR VOLUME 86.3 fL (79-99); MONOCYTES % (AUTO) 7.8 % (3.0-13.0); NEUTROPHILS % (AUTO) 74.4 % (40.0-77.0); PLATELET COUNT (AUTO) 246 K/uL (130-400); RED BLOOD CELL COUNT(AUTO) 4.44 MIL/uL (4.00-5.50); RED CELL DISTRIBUTION WIDTH 12.2 % (11.0-15.5); WHITE BLOOD COUNT (AUTO) 5.1 K/uL (4.8-10.8)
[2020-11-23] MEDS: REMDESIVIR LABS MISC SCH (06:00)
[2020-11-23 06:03] LABS: ALBUMIN 2.7 g/dL (3.5-5.0); BILIRUBIN,DIRECT 0.1 mg/dL (0.0-0.3); BILIRUBIN,TOTAL 0.4 mg/dL (0.2-1.0); MAGNESIUM 1.9 mg/dL (1.80-2.40); POTASSIUM 3.6 mmol/L (3.5-5.1); TOTAL PROTEIN, SERUM 6.4 g/dL (6.0-8.3)
[2020-11-23] MEDS: INSULIN HUMULIN R 100 UNIT/ML 3ML SQ SCH ×4 (06:16→21:11)
[2020-11-23 07:43] VITALS: BP 108/61
[2020-11-23] MEDS: LACTULOSE 20 GM/30 ML UDCUP PO SCH ×2 (08:22→21:13)
[2020-11-23] MEDS: DEXAMETHASONE SOD PHOSPHATE 4 MG/ML 1ML VIAL IVP SCH ×2 (08:23→21:09)
[2020-11-23] MEDS: ENOXAPARIN SODIUM 40 MG/0.4 ML SYRINGE SQ SCH (08:23)
[2020-11-23] MEDS: Vitamin B Complex/Vit C/Folic Acid PO SCH (08:24)
[2020-11-23] MEDS: PANTOPRAZOLE 40 MG TAB DR PO SCH (08:24)
[2020-11-23] MEDS: GABAPENTIN 300 MG CAPSULE PO SCH ×3 (08:24→21:09)
[2020-11-23] MEDS ORDERED: VIT C NO 3 PO SCH (09:00)
[2020-11-23] MEDS ORDERED: [UNRECOGNIZED DRUG - OTHER] PO SCH (09:00)
[2020-11-23] MEDS ORDERED: VITAMIN C PO SCH (09:00)
[2020-11-23] MEDS ORDERED: VITAMIN B COMPLEX PO SCH (09:00)
[2020-11-23] MEDS ORDERED: POLYETHYLENE GLYCOL 3350 17 GM POWD.PACK PO SCH (12:00)
[2020-11-23 12:05] VITALS: BP 132/63
[2020-11-23] MEDS: SENNOSIDES 8.6 MG TABLET PO SCH (13:01)
[2020-11-23] MEDS: REMDESIVIR (EUA) 520 100 MG in 0.9% NACL 250ML 250 ML IV SCH (13:03)
[2020-11-23] MEDS ORDERED: LACTULOSE 20 GM/30 ML UDCUP PO SCH (14:30)
[2020-11-23 15:53] VITALS: BP 125/62
[2020-11-23 20:10] VITALS: BP 128/67
[2020-11-23] MEDS: AMLODIPINE 5 MG TAB PO SCH (21:09)
[2020-11-23] MEDS: INSULIN GLARGINE 100 UNITS/ML 10 ML VIAL SQ SCH (21:11)
[2020-11-23] MEDS ORDERED: POLYETHYLENE GLYCOL 3350 17 GM POWD.PACK ONE (22:28)
[2020-11-23] MEDS ORDERED: POLYETHYLENE GLYCOL 3350 17 GM POWD.PACK PO ONE (22:30)
[2020-11-23] MEDS: ACETAMINOPHEN 325 MG TAB PO PRN (23:28)
[2020-11-23 23:36] VITALS: BP 154/75
[2020-11-24 04:24] VITALS: BP 114/53
[2020-11-24 05:22] LABS: BASOPHILS % (AUTO) 0.3 % (0.0-5.0); HEMATOCRIT 39.8 % (36-48); LYMPHOCYTES % (AUTO) 7.9 % (21.0-51.0); MEAN CORPUSCULAR HGB CONC 32.7 g/dL (32.0-36.0); MEAN CORPUSCULAR VOLUME 85.6 fL (79-99); MONOCYTES % (AUTO) 6.2 % (3.0-13.0); NEUTROPHILS % (AUTO) 84.5 % (40.0-77.0); PLATELET COUNT (AUTO) 363 K/uL (130-400); RED BLOOD CELL COUNT(AUTO) 4.65 MIL/uL (4.00-5.50); RED CELL DISTRIBUTION WIDTH 12.3 % (11.0-15.5); WHITE BLOOD COUNT (AUTO) 11.4 K/uL (4.8-10.8)
[2020-11-24 05:33] LABS: ALBUMIN 2.9 g/dL (3.5-5.0); BILIRUBIN,TOTAL 0.4 mg/dL (0.2-1.0); CREATININE 1.1 mg/dL (0.5-1.5); CRP QUANTITATIVE 35.4 mg/L (0.00-9.0); TOTAL PROTEIN, SERUM 6.1 g/dL (6.0-8.3)
[2020-11-24] MEDS: INSULIN HUMULIN R 100 UNIT/ML 3ML SQ SCH ×4 (07:30→21:13)
[2020-11-24 07:35] VITALS: BP 124/67
[2020-11-24] MEDS: Vitamin B Complex/Vit C/Folic Acid PO SCH (08:06)
[2020-11-24] MEDS: DEXAMETHASONE SOD PHOSPHATE 4 MG/ML 1ML VIAL IVP SCH (08:06)
[2020-11-24] MEDS: GABAPENTIN 300 MG CAPSULE PO SCH ×3 (08:06→20:45)
[2020-11-24] MEDS: PANTOPRAZOLE 40 MG TAB DR PO SCH (08:06)
[2020-11-24] MEDS: ENOXAPARIN SODIUM 40 MG/0.4 ML SYRINGE SQ SCH (08:07)
[2020-11-24] MEDS: LACTULOSE 20 GM/30 ML UDCUP PO SCH (08:07)
[2020-11-24] MEDS: SENNOSIDES 8.6 MG TABLET PO SCH (12:00)
[2020-11-24 12:14] VITALS: BP 139/64
[2020-11-24] MEDS: REMDESIVIR (EUA) 520 100 MG in 0.9% NACL 250ML 250 ML IV SCH (14:20)
[2020-11-24 16:14] VITALS: BP 137/68
[2020-11-24 20:37] VITALS: BP 119/61
[2020-11-24] MEDS: AMLODIPINE 5 MG TAB PO SCH (20:51)
[2020-11-24] MEDS: ACETAMINOPHEN 325 MG TAB PO PRN (21:03)
[2020-11-24] MEDS: INSULIN GLARGINE 100 UNITS/ML 10 ML VIAL SQ SCH (21:13)
[2020-11-24 23:58] VITALS: BP 116/55
[2020-11-25 04:05] VITALS: BP 126/53
[2020-11-25 06:10] LABS: BASOPHILS % (AUTO) 0.2 % (0.0-5.0); HEMATOCRIT 40.9 % (36-48); MEAN CORPUSCULAR VOLUME 87.4 fL (79-99); MONOCYTES % (AUTO) 6.5 % (3.0-13.0); NEUTROPHILS % (AUTO) 84.1 % (40.0-77.0); PLATELET COUNT (AUTO) 341 K/uL (130-400); RED BLOOD CELL COUNT(AUTO) 4.68 MIL/uL (4.00-5.50); RED CELL DISTRIBUTION WIDTH 12.3 % (11.0-15.5)
[2020-11-25 06:43] LABS: ALBUMIN 2.7 g/dL (3.5-5.0); BILIRUBIN,TOTAL 0.4 mg/dL (0.2-1.0); CREATININE 1.1 mg/dL (0.5-1.5); CRP QUANTITATIVE 19.9 mg/L (0.00-9.0); POTASSIUM 3.8 mmol/L (3.5-5.1); TOTAL PROTEIN, SERUM 6.4 g/dL (6.0-8.3)
[2020-11-25] MEDS: INSULIN HUMULIN R 100 UNIT/ML 3ML SQ SCH ×4 (07:13→20:25)
[2020-11-25 08:00] VITALS: BP 131/60
[2020-11-25] MEDS: Vitamin B Complex/Vit C/Folic Acid PO SCH (08:22)
[2020-11-25] MEDS: GABAPENTIN 300 MG CAPSULE PO SCH ×3 (08:22→20:15)
[2020-11-25] MEDS: PANTOPRAZOLE 40 MG TAB DR PO SCH (08:22)
[2020-11-25] MEDS: DEXAMETHASONE SOD PHOSPHATE 4 MG/ML 1ML VIAL IVP SCH (08:23)
[2020-11-25] MEDS: ENOXAPARIN SODIUM 40 MG/0.4 ML SYRINGE SQ SCH (08:25)
[2020-11-25 12:01] VITALS: BP 140/61
[2020-11-25 16:05] VITALS: BP 136/53
[2020-11-25] MEDS: AMLODIPINE 5 MG TAB PO SCH (20:15)
[2020-11-25 20:16] VITALS: BP 138/77
[2020-11-25] MEDS: INSULIN GLARGINE 100 UNITS/ML 10 ML VIAL SQ SCH (20:25)
[2020-11-26] VITALS (7 sets, daily range): BP systolic 134–160; BP diastolic 58–77
[2020-11-26 05:49] LABS: BASOPHILS % (AUTO) 0.3 % (0.0-5.0); HEMATOCRIT 40.1 % (36-48); LYMPHOCYTES % (AUTO) 8.7 % (21.0-51.0); MEAN CORPUSCULAR HEMOGLOBIN 28.1 pg (27.0-33.0); MEAN CORPUSCULAR HGB CONC 31.9 g/dL (32.0-36.0); MEAN CORPUSCULAR VOLUME 88.1 fL (79-99); MONOCYTES % (AUTO) 5.2 % (3.0-13.0); NEUTROPHILS % (AUTO) 84.2 % (40.0-77.0); PLATELET COUNT (AUTO) 356 K/uL (130-400); RED BLOOD CELL COUNT(AUTO) 4.55 MIL/uL (4.00-5.50); RED CELL DISTRIBUTION WIDTH 12.4 % (11.0-15.5); WHITE BLOOD COUNT (AUTO) 10.1 K/uL (4.8-10.8)
[2020-11-26 06:10] LABS: ALBUMIN 2.7 g/dL (3.5-5.0); BILIRUBIN,TOTAL 0.6 mg/dL (0.2-1.0); CREATININE 0.9 mg/dL (0.5-1.5); MAGNESIUM 2.4 mg/dL (1.80-2.40); POTASSIUM 4.4 mmol/L (3.5-5.1); TOTAL PROTEIN, SERUM 5.9 g/dL (6.0-8.3)
[2020-11-26] MEDS: INSULIN HUMULIN R 100 UNIT/ML 3ML SQ SCH ×4 (07:30→21:00)
[2020-11-26] MEDS: PANTOPRAZOLE 40 MG TAB DR PO SCH (08:19)
[2020-11-26] MEDS: ENOXAPARIN SODIUM 40 MG/0.4 ML SYRINGE SQ SCH (08:19)
[2020-11-26] MEDS: Vitamin B Complex/Vit C/Folic Acid PO SCH (08:19)
[2020-11-26] MEDS: GABAPENTIN 300 MG CAPSULE PO SCH ×3 (08:19→22:24)
[2020-11-26] MEDS: DEXAMETHASONE SOD PHOSPHATE 4 MG/ML 1ML VIAL IVP SCH (08:20)
[2020-11-26] MEDS ORDERED: DEXMEDETOMIDINE HCL 400 MCG in 0.9%NACL 100ML 100 ML IV SCH (16:15)
[2020-11-26] MEDS ORDERED: HALOPERIDOL INJ 5 MG/ML VIAL IV PRN (16:15)
[2020-11-26] MEDS ORDERED: LORAZEPAM 2 MG/ML 1 ML VIAL IVP ONE (16:15)
[2020-11-26] MEDS: AMLODIPINE 5 MG TAB PO SCH (22:24)
[2020-11-26] MEDS: INSULIN GLARGINE 100 UNITS/ML 10 ML VIAL SQ SCH (22:36)
[2020-11-27 03:53] VITALS: BP 126/50
[2020-11-27 05:43] LABS: BASOPHILS % (AUTO) 0.2 % (0.0-5.0); HEMATOCRIT 36.7 % (36-48); MEAN CORPUSCULAR HEMOGLOBIN 27.8 pg (27.0-33.0); MEAN CORPUSCULAR HGB CONC 32.7 g/dL (32.0-36.0); MEAN CORPUSCULAR VOLUME 85.2 fL (79-99); MONOCYTES % (AUTO) 3.6 % (3.0-13.0); NEUTROPHILS % (AUTO) 88.2 % (40.0-77.0); PLATELET COUNT (AUTO) 344 K/uL (130-400); RED BLOOD CELL COUNT(AUTO) 4.31 MIL/uL (4.00-5.50); RED CELL DISTRIBUTION WIDTH 12.2 % (11.0-15.5); WHITE BLOOD COUNT (AUTO) 12.2 K/uL (4.8-10.8)
[2020-11-27 05:53] LABS: ALBUMIN 2.3 g/dL (3.5-5.0); BILIRUBIN,TOTAL 0.5 mg/dL (0.2-1.0); CREATININE 0.8 mg/dL (0.5-1.5); CRP QUANTITATIVE 50.8 mg/L (0.00-9.0); TOTAL PROTEIN, SERUM 5.1 g/dL (6.0-8.3)
[2020-11-27] MEDS: INSULIN HUMULIN R 100 UNIT/ML 3ML SQ SCH ×4 (06:42→21:00)
[2020-11-27 08:23] VITALS: BP 139/56
[2020-11-27] MEDS ORDERED: POLYETHYLENE GLYCOL 3350 17 GM POWD.PACK PO PRN (08:45)
[2020-11-27] MEDS: ENOXAPARIN SODIUM 40 MG/0.4 ML SYRINGE SQ SCH ×3 (09:00→21:03)
[2020-11-27] MEDS: GABAPENTIN 300 MG CAPSULE PO SCH ×3 (09:11→21:02)
[2020-11-27] MEDS: Vitamin B Complex/Vit C/Folic Acid PO SCH (09:11)
[2020-11-27] MEDS: PANTOPRAZOLE 40 MG TAB DR PO SCH (09:11)
[2020-11-27] MEDS: DEXAMETHASONE SOD PHOSPHATE 4 MG/ML 1ML VIAL IVP SCH (09:11)
[2020-11-27] MEDS: DIPYRIDAMOLE 25 MG TABLET PO SCH (09:47)
[2020-11-27] MEDS: METOPROLOL TARTRATE 25 MG TAB PO SCH ×2 (09:47→21:02)
[2020-11-27] MEDS: SENNOSIDES 8.6 MG TABLET PO SCH (09:48)
[2020-11-27 11:38] VITALS: BP 123/59
[2020-11-27] MEDS: DOCUSATE SODIUM 100 MG CAP PO SCH ×2 (13:30→21:02)
[2020-11-27 16:56] VITALS: BP 120/53
[2020-11-27 20:11] VITALS: BP 124/52
[2020-11-27] MEDS: INSULIN GLARGINE 100 UNITS/ML 10 ML VIAL SQ SCH (21:09)
[2020-11-28] VITALS (7 sets, daily range): BP systolic 121–156; BP diastolic 54–68
[2020-11-28 04:43] LABS: BASOPHILS % (AUTO) 0.4 % (0.0-5.0); HEMATOCRIT 37.6 % (36-48); LYMPHOCYTES % (AUTO) 6.5 % (21.0-51.0); MEAN CORPUSCULAR HEMOGLOBIN 28.3 pg (27.0-33.0); MEAN CORPUSCULAR VOLUME 85.8 fL (79-99); MONOCYTES % (AUTO) 3.1 % (3.0-13.0); NEUTROPHILS % (AUTO) 86.8 % (40.0-77.0); PLATELET COUNT (AUTO) 350 K/uL (130-400); RED BLOOD CELL COUNT(AUTO) 4.38 MIL/uL (4.00-5.50); RED CELL DISTRIBUTION WIDTH 12.2 % (11.0-15.5); WHITE BLOOD COUNT (AUTO) 11.1 K/uL (4.8-10.8)
[2020-11-28 05:04] LABS: CREATININE 0.9 mg/dL (0.5-1.5); CRP QUANTITATIVE 55.9 mg/L (0.00-9.0); MAGNESIUM 2.1 mg/dL (1.80-2.40); PHOSPHORUS 3.3 mg/dL (2.5-4.9); POTASSIUM 4.3 mmol/L (3.5-5.1)
[2020-11-28] MEDS: DOCUSATE SODIUM 100 MG CAP PO SCH ×3 (06:42→20:42)
[2020-11-28] MEDS: INSULIN HUMULIN R 100 UNIT/ML 3ML SQ SCH ×4 (06:43→20:40)
[2020-11-28] MEDS: SENNOSIDES 8.6 MG TABLET PO SCH (08:23)
[2020-11-28] MEDS: GABAPENTIN 300 MG CAPSULE PO SCH ×3 (08:23→20:31)
[2020-11-28] MEDS: Vitamin B Complex/Vit C/Folic Acid PO SCH (08:23)
[2020-11-28] MEDS: DEXAMETHASONE SOD PHOSPHATE 4 MG/ML 1ML VIAL IVP SCH (08:23)
[2020-11-28] MEDS: PANTOPRAZOLE 40 MG TAB DR PO SCH (08:23)
[2020-11-28] MEDS: DIPYRIDAMOLE 25 MG TABLET PO SCH (09:46)
[2020-11-28] MEDS: ENOXAPARIN SODIUM 40 MG/0.4 ML SYRINGE SQ SCH ×2 (09:47→20:31)
[2020-11-28] MEDS: METOPROLOL TARTRATE 25 MG TAB PO SCH (09:52)
[2020-11-28] MEDS: BENZOCAINE/MENTH/CETYLPYRD CL 1 EACH LOZENGE MM PRN ×2 (13:28→20:31)
[2020-11-28] MEDS ORDERED: BENZONATATE 100 MG CAPSULE PO SCH (14:15)
[2020-11-28] MEDS ORDERED: FLUTICASONE PROPIONATE 50MCG/SPRAY 16 GM BOTTLE EN SCH (19:30)
[2020-11-28] MEDS: INSULIN GLARGINE 100 UNITS/ML 10 ML VIAL SQ SCH (20:41)
[2020-11-29 03:26] VITALS: BP 156/72
[2020-11-29 05:51] LABS: BASOPHILS % (AUTO) 0.6 % (0.0-5.0); EOSINOPHILS % (AUTO) 0.1 % (0.0-8.0); HEMATOCRIT 38.4 % (36-48); LYMPHOCYTES % (AUTO) 7.2 % (21.0-51.0); MEAN CORPUSCULAR HEMOGLOBIN 28.3 pg (27.0-33.0); MEAN CORPUSCULAR HGB CONC 32.8 g/dL (32.0-36.0); MEAN CORPUSCULAR VOLUME 86.1 fL (79-99); MONOCYTES % (AUTO) 3.6 % (3.0-13.0); NEUTROPHILS % (AUTO) 83.4 % (40.0-77.0); PLATELET COUNT (AUTO) 372 K/uL (130-400); RED BLOOD CELL COUNT(AUTO) 4.46 MIL/uL (4.00-5.50); RED CELL DISTRIBUTION WIDTH 12.2 % (11.0-15.5)
[2020-11-29] MEDS: DOCUSATE SODIUM 100 MG CAP PO SCH ×3 (06:00→20:49)
[2020-11-29 06:09] LABS: ALBUMIN 2.3 g/dL (3.5-5.0); BILIRUBIN,TOTAL 0.5 mg/dL (0.2-1.0); POTASSIUM 4.3 mmol/L (3.5-5.1); TOTAL PROTEIN, SERUM 6.1 g/dL (6.0-8.3)
[2020-11-29] MEDS: INSULIN HUMULIN R 100 UNIT/ML 3ML SQ SCH ×4 (06:41→20:49)
[2020-11-29 08:10] VITALS: BP 137/59
[2020-11-29] MEDS: AMLODIPINE 5 MG TAB PO SCH (08:35)
[2020-11-29] MEDS: PANTOPRAZOLE 40 MG TAB DR PO SCH (08:35)
[2020-11-29] MEDS: Vitamin B Complex/Vit C/Folic Acid PO SCH (08:35)
[2020-11-29] MEDS: GABAPENTIN 300 MG CAPSULE PO SCH ×3 (08:35→20:49)
[2020-11-29] MEDS: DIPYRIDAMOLE 25 MG TABLET PO SCH (08:35)
[2020-11-29] MEDS: DEXAMETHASONE SOD PHOSPHATE 4 MG/ML 1ML VIAL IVP SCH (08:36)
[2020-11-29] MEDS: ENOXAPARIN SODIUM 40 MG/0.4 ML SYRINGE SQ SCH ×2 (08:37→20:48)
[2020-11-29] MEDS: SENNOSIDES 8.6 MG TABLET PO SCH (09:00)
[2020-11-29 12:09] VITALS: BP 131/61
[2020-11-29 16:44] VITALS: BP 128/57
[2020-11-29 20:05] VITALS: BP 143/71
[2020-11-29] MEDS: INSULIN GLARGINE 100 UNITS/ML 10 ML VIAL SQ SCH (20:47)
[2020-11-30] VITALS (7 sets, daily range): BP systolic 128–143; BP diastolic 57–70
[2020-11-30] MEDS ORDERED: FERR325T22 PO (00:34)
[2020-11-30] MEDS ORDERED: ZINC50TA64 PO (00:36)
[2020-11-30 05:32] LABS: BASOPHILS % (AUTO) 0.5 % (0.0-5.0); EOSINOPHILS % (AUTO) 0.2 % (0.0-8.0); HEMATOCRIT 37.7 % (36-48); LYMPHOCYTES % (AUTO) 7.1 % (21.0-51.0); MEAN CORPUSCULAR HEMOGLOBIN 28.3 pg (27.0-33.0); MEAN CORPUSCULAR HGB CONC 32.6 g/dL (32.0-36.0); MEAN CORPUSCULAR VOLUME 86.7 fL (79-99); MONOCYTES % (AUTO) 4.5 % (3.0-13.0); NEUTROPHILS % (AUTO) 82.4 % (40.0-77.0); PLATELET COUNT (AUTO) 375 K/uL (130-400); RED BLOOD CELL COUNT(AUTO) 4.35 MIL/uL (4.00-5.50); RED CELL DISTRIBUTION WIDTH 12.4 % (11.0-15.5); WHITE BLOOD COUNT (AUTO) 10.5 K/uL (4.8-10.8)
[2020-11-30 05:53] LABS: CREATININE 0.9 mg/dL (0.5-1.5); CRP QUANTITATIVE 34.3 mg/L (0.00-9.0); POTASSIUM 4.5 mmol/L (3.5-5.1)
[2020-11-30] MEDS: INSULIN HUMULIN R 100 UNIT/ML 3ML SQ SCH ×4 (06:21→22:37)
[2020-11-30] MEDS: DOCUSATE SODIUM 100 MG CAP PO SCH ×3 (06:25→22:32)
[2020-11-30] MEDS: PANTOPRAZOLE 40 MG TAB DR PO SCH (08:34)
[2020-11-30] MEDS: SENNOSIDES 8.6 MG TABLET PO SCH (08:34)
[2020-11-30] MEDS: AMLODIPINE 5 MG TAB PO SCH (08:34)
[2020-11-30] MEDS: Vitamin B Complex/Vit C/Folic Acid PO SCH (08:34)
[2020-11-30] MEDS: GABAPENTIN 300 MG CAPSULE PO SCH ×3 (08:34→21:02)
[2020-11-30] MEDS: DEXAMETHASONE SOD PHOSPHATE 4 MG/ML 1ML VIAL IVP SCH (08:35)
[2020-11-30] MEDS: ENOXAPARIN SODIUM 40 MG/0.4 ML SYRINGE SQ SCH ×2 (08:37→21:27)
[2020-11-30] MEDS: DIPYRIDAMOLE 25 MG TABLET PO SCH (09:29)
[2020-11-30] MEDS: POLYETHYLENE GLYCOL 3350 17 GM POWD.PACK PO SCH (10:30)
[2020-11-30] MEDS: INSULIN GLARGINE 100 UNITS/ML 10 ML VIAL SQ SCH (22:35)
[2020-12-01 03:48] VITALS: BP 136/69
[2020-12-01 03:49] LABS: ABG BASE EXCESS 2.6 mmol/L (-2.0-3.0); ABG HCO3 27.2 mmol/L (21.0-28.0); ABG OXYGEN SATURATION 97.5 % (95.0-99.0); ABG PCO2 42 mmHg (32-45)
[2020-12-01 06:28] LABS: BASOPHILS % (AUTO) 0.6 % (0.0-5.0); EOSINOPHILS % (AUTO) 0.5 % (0.0-8.0); HEMATOCRIT 35.8 % (36-48); LYMPHOCYTES % (AUTO) 6.5 % (21.0-51.0); MEAN CORPUSCULAR HEMOGLOBIN 28.7 pg (27.0-33.0); MEAN CORPUSCULAR HGB CONC 33.8 g/dL (32.0-36.0); MEAN CORPUSCULAR VOLUME 84.8 fL (79-99); MONOCYTES % (AUTO) 4.6 % (3.0-13.0); NEUTROPHILS % (AUTO) 83.8 % (40.0-77.0); PLATELET COUNT (AUTO) 358 K/uL (130-400); RED BLOOD CELL COUNT(AUTO) 4.22 MIL/uL (4.00-5.50); RED CELL DISTRIBUTION WIDTH 12.4 % (11.0-15.5); WHITE BLOOD COUNT (AUTO) 11.8 K/uL (4.8-10.8)
[2020-12-01 06:45] LABS: BILIRUBIN,TOTAL 0.4 mg/dL (0.2-1.0); POTASSIUM 4.2 mmol/L (3.5-5.1)
[2020-12-01] MEDS: DOCUSATE SODIUM 100 MG CAP PO SCH ×3 (06:48→22:26)
[2020-12-01 07:28] LABS: ALBUMIN 2.2 g/dL (3.5-5.0); CREATININE 0.9 mg/dL (0.5-1.5); CRP QUANTITATIVE 29.3 mg/L (0.00-9.0); TOTAL PROTEIN, SERUM 6.2 g/dL (6.0-8.3)
[2020-12-01] MEDS: INSULIN HUMULIN R 100 UNIT/ML 3ML SQ SCH ×4 (07:30→22:21)
[2020-12-01 08:06] VITALS: BP 131/70
[2020-12-01] MEDS: GABAPENTIN 300 MG CAPSULE PO SCH ×3 (08:41→22:18)
[2020-12-01] MEDS: SENNOSIDES 8.6 MG TABLET PO SCH (08:41)
[2020-12-01] MEDS: DEXAMETHASONE SOD PHOSPHATE 4 MG/ML 1ML VIAL IVP SCH (08:42)
[2020-12-01] MEDS: Vitamin B Complex/Vit C/Folic Acid PO SCH (08:42)
[2020-12-01] MEDS: PANTOPRAZOLE 40 MG TAB DR PO SCH (08:42)
[2020-12-01] MEDS: AMLODIPINE 5 MG TAB PO SCH (08:42)
[2020-12-01] MEDS: POLYETHYLENE GLYCOL 3350 17 GM POWD.PACK PO SCH (08:42)
[2020-12-01] MEDS: DIPYRIDAMOLE 25 MG TABLET PO SCH (08:42)
[2020-12-01] MEDS: ENOXAPARIN SODIUM 40 MG/0.4 ML SYRINGE SQ SCH ×2 (08:43→22:25)
[2020-12-01] MEDS ORDERED: ALBUTEROL INHALER 90MCG/INH IH PRN (10:45)
[2020-12-01 12:19] VITALS: BP 131/59
[2020-12-01] MEDS: FLUTICASONE/VILANTEROL 1 EACH BLST.W.DEV IH SCH (12:50)
[2020-12-01 16:27] VITALS: BP 125/67
[2020-12-01 19:56] VITALS: BP 148/71
[2020-12-01] MEDS: INSULIN GLARGINE 100 UNITS/ML 10 ML VIAL SQ SCH (22:22)
[2020-12-01 23:36] VITALS: BP 122/63
[2020-12-02 03:53] VITALS: BP 140/73
[2020-12-02 05:51] LABS: BASOPHILS % (AUTO) 0.5 % (0.0-5.0); EOSINOPHILS % (AUTO) 0.6 % (0.0-8.0); HEMATOCRIT 35.9 % (36-48); MEAN CORPUSCULAR HEMOGLOBIN 28.1 pg (27.0-33.0); MEAN CORPUSCULAR HGB CONC 32.6 g/dL (32.0-36.0); MEAN CORPUSCULAR VOLUME 86.3 fL (79-99); MONOCYTES % (AUTO) 4.9 % (3.0-13.0); NEUTROPHILS % (AUTO) 83.2 % (40.0-77.0); PLATELET COUNT (AUTO) 346 K/uL (130-400); RED BLOOD CELL COUNT(AUTO) 4.16 MIL/uL (4.00-5.50); RED CELL DISTRIBUTION WIDTH 12.5 % (11.0-15.5); WHITE BLOOD COUNT (AUTO) 13.2 K/uL (4.8-10.8)
[2020-12-02 06:07] LABS: CRP QUANTITATIVE 51.6 mg/L (0.00-9.0); POTASSIUM 4.3 mmol/L (3.5-5.1)
[2020-12-02] MEDS: INSULIN HUMULIN R 100 UNIT/ML 3ML SQ SCH ×4 (07:30→20:57)
[2020-12-02 08:05] VITALS: BP 122/58
[2020-12-02] MEDS: GABAPENTIN 300 MG CAPSULE PO SCH ×3 (09:04→20:52)
[2020-12-02] MEDS: Vitamin B Complex/Vit C/Folic Acid PO SCH (09:04)
[2020-12-02] MEDS: SENNOSIDES 8.6 MG TABLET PO SCH (09:04)
[2020-12-02] MEDS: DIPYRIDAMOLE 25 MG TABLET PO SCH (09:04)
[2020-12-02] MEDS: AMLODIPINE 5 MG TAB PO SCH (09:04)
[2020-12-02] MEDS: DEXAMETHASONE SOD PHOSPHATE 4 MG/ML 1ML VIAL IVP SCH (09:04)
[2020-12-02] MEDS: PANTOPRAZOLE 40 MG TAB DR PO SCH (09:04)
[2020-12-02] MEDS: ENOXAPARIN SODIUM 40 MG/0.4 ML SYRINGE SQ SCH ×2 (09:05→20:51)
[2020-12-02] MEDS: POLYETHYLENE GLYCOL 3350 17 GM POWD.PACK PO SCH (09:05)
[2020-12-02] MEDS: FLUTICASONE/VILANTEROL 1 EACH BLST.W.DEV IH SCH (09:05)
[2020-12-02 12:41] VITALS: BP 125/59
[2020-12-02] MEDS: DOCUSATE SODIUM 100 MG CAP PO SCH ×3 (14:00→20:58)
[2020-12-02] MEDS: NACL NASAL SPRAY 120 SPRAY/BOTTLE NS SCH ×3 (15:34→20:58)
[2020-12-02] MEDS: FLUTICASONE PROPIONATE 50MCG/SPRAY 16 GM BOTTLE EN SCH (15:35)
[2020-12-02 16:53] VITALS: BP 140/62
[2020-12-02 20:18] VITALS: BP 138/66
[2020-12-02] MEDS: BENZOCAINE/MENTH/CETYLPYRD CL 1 EACH LOZENGE MM PRN (20:52)
[2020-12-02] MEDS: INSULIN GLARGINE 100 UNITS/ML 10 ML VIAL SQ SCH (20:57)
[2020-12-02 23:34] VITALS: BP 157/75
[2020-12-03] MEDS: NACL NASAL SPRAY 120 SPRAY/BOTTLE NS SCH ×6 (02:18→21:26)
[2020-12-03 03:44] VITALS: BP 139/98
[2020-12-03] MEDS: INSULIN HUMULIN R 100 UNIT/ML 3ML SQ SCH ×4 (05:22→20:52)
[2020-12-03] MEDS: DOCUSATE SODIUM 100 MG CAP PO SCH ×3 (06:34→21:25)
[2020-12-03 07:52] LABS: BASOPHILS % (AUTO) 0.5 % (0.0-5.0); EOSINOPHILS % (AUTO) 1.4 % (0.0-8.0); HEMATOCRIT 39.4 % (36-48); LYMPHOCYTES % (AUTO) 6.8 % (21.0-51.0); MEAN CORPUSCULAR HEMOGLOBIN 28.1 pg (27.0-33.0); MEAN CORPUSCULAR HGB CONC 32.5 g/dL (32.0-36.0); MEAN CORPUSCULAR VOLUME 86.4 fL (79-99); MONOCYTES % (AUTO) 4.8 % (3.0-13.0); NEUTROPHILS % (AUTO) 83.1 % (40.0-77.0); PLATELET COUNT (AUTO) 371 K/uL (130-400); RED BLOOD CELL COUNT(AUTO) 4.56 MIL/uL (4.00-5.50); RED CELL DISTRIBUTION WIDTH 12.7 % (11.0-15.5); WHITE BLOOD COUNT (AUTO) 13.2 K/uL (4.8-10.8)
[2020-12-03 08:08] LABS: POTASSIUM 4.7 mmol/L (3.5-5.1)
[2020-12-03 08:43] VITALS: BP 143/66
[2020-12-03] MEDS: Vitamin B Complex/Vit C/Folic Acid PO SCH (08:52)
[2020-12-03] MEDS: DEXAMETHASONE SOD PHOSPHATE 4 MG/ML 1ML VIAL IVP SCH (08:52)
[2020-12-03] MEDS: GABAPENTIN 300 MG CAPSULE PO SCH ×3 (08:52→21:26)
[2020-12-03] MEDS: DIPYRIDAMOLE 25 MG TABLET PO SCH (08:52)
[2020-12-03] MEDS: PANTOPRAZOLE 40 MG TAB DR PO SCH (08:52)
[2020-12-03] MEDS: AMLODIPINE 5 MG TAB PO SCH (08:52)
[2020-12-03] MEDS: SENNOSIDES 8.6 MG TABLET PO SCH (08:52)
[2020-12-03] MEDS: FLUTICASONE PROPIONATE 50MCG/SPRAY 16 GM BOTTLE EN SCH (08:53)
[2020-12-03] MEDS: ENOXAPARIN SODIUM 40 MG/0.4 ML SYRINGE SQ SCH ×2 (08:53→21:25)
[2020-12-03] MEDS: POLYETHYLENE GLYCOL 3350 17 GM POWD.PACK PO SCH (08:53)
[2020-12-03] MEDS: FLUTICASONE/VILANTEROL 1 EACH BLST.W.DEV IH SCH (08:54)
[2020-12-03 13:20] VITALS: BP 143/66
[2020-12-03 15:18] LABS: THYROID STIMULATING HORMONE 0.86 uIU/mL (0.36-3.74)
[2020-12-03 15:55] LABS: CRP QUANTITATIVE 116.5 mg/L (0.00-9.0)
[2020-12-03] MEDS: FUROSEMIDE 20MG VIAL IV SCH (16:31)
[2020-12-03 16:59] VITALS: BP 124/72
[2020-12-03 17:43] LABS: POTASSIUM 4.7 mmol/L (3.5-5.1)
[2020-12-03 20:18] VITALS: BP 94/48
[2020-12-03] MEDS: INSULIN GLARGINE 100 UNITS/ML 10 ML VIAL SQ SCH (21:27)
[2020-12-03 23:53] VITALS: BP 121/55
[2020-12-04] MEDS: NACL NASAL SPRAY 120 SPRAY/BOTTLE NS SCH ×5 (02:07→21:02)
[2020-12-04 03:09] VITALS: BP 132/65
[2020-12-04] MEDS: FUROSEMIDE 20MG VIAL IV SCH ×2 (03:34→15:28)
[2020-12-04 05:12] LABS: BASOPHILS % (AUTO) 0.4 % (0.0-5.0); EOSINOPHILS % (AUTO) 0.2 % (0.0-8.0); HEMATOCRIT 39.8 % (36-48); MEAN CORPUSCULAR HGB CONC 31.9 g/dL (32.0-36.0); MEAN CORPUSCULAR VOLUME 87.9 fL (79-99); MONOCYTES % (AUTO) 5.7 % (3.0-13.0); NEUTROPHILS % (AUTO) 84.9 % (40.0-77.0); PLATELET COUNT (AUTO) 356 K/uL (130-400); RED BLOOD CELL COUNT(AUTO) 4.53 MIL/uL (4.00-5.50); RED CELL DISTRIBUTION WIDTH 12.8 % (11.0-15.5); WHITE BLOOD COUNT (AUTO) 16.1 K/uL (4.8-10.8)
[2020-12-04 05:50] LABS: ALBUMIN 2.2 g/dL (3.5-5.0); BILIRUBIN,TOTAL 0.5 mg/dL (0.2-1.0); CREATININE 1.3 mg/dL (0.5-1.5); POTASSIUM 4.3 mmol/L (3.5-5.1); TOTAL PROTEIN, SERUM 6.5 g/dL (6.0-8.3)
[2020-12-04] MEDS: LEVOTHYROXINE 50 MCG TABLET PO SCH (05:57)
[2020-12-04] MEDS: DOCUSATE SODIUM 100 MG CAP PO SCH ×3 (05:57→21:02)
[2020-12-04] MEDS: INSULIN HUMULIN R 100 UNIT/ML 3ML SQ SCH ×4 (07:30→21:26)
[2020-12-04] MEDS: Vitamin B Complex/Vit C/Folic Acid PO SCH (08:16)
[2020-12-04] MEDS: DIPYRIDAMOLE 25 MG TABLET PO SCH (08:16)
[2020-12-04] MEDS: POLYETHYLENE GLYCOL 3350 17 GM POWD.PACK PO SCH (08:16)
[2020-12-04] MEDS: AMLODIPINE 5 MG TAB PO SCH (08:16)
[2020-12-04] MEDS: SOLU-MEDROL 125MG VIAL IVP SCH (08:16)
[2020-12-04] MEDS: ENOXAPARIN SODIUM 40 MG/0.4 ML SYRINGE SQ SCH ×2 (08:17→21:00)
[2020-12-04] MEDS: GABAPENTIN 300 MG CAPSULE PO SCH ×3 (08:17→21:02)
[2020-12-04] MEDS: PANTOPRAZOLE 40 MG TAB DR PO SCH (08:17)
[2020-12-04] MEDS: SENNOSIDES 8.6 MG TABLET PO SCH (08:17)
[2020-12-04 08:32] VITALS: BP 141/79
[2020-12-04] MEDS: FLUTICASONE PROPIONATE 50MCG/SPRAY 16 GM BOTTLE EN SCH (08:46)
[2020-12-04] MEDS: FLUTICASONE/VILANTEROL 1 EACH BLST.W.DEV IH SCH (08:46)
[2020-12-04 12:15] VITALS: BP 138/69
[2020-12-04] MEDS ORDERED: PHARMACY COMMUNICATION MISC SCH ×2 (15:30→16:00)
[2020-12-04 15:34] LABS: ABG BASE EXCESS 3.6 mmol/L (-2.0-3.0); ABG HCO3 27.1 mmol/L (21.0-28.0); ABG OXYGEN SATURATION 93.8 % (95.0-99.0); ABG PCO2 37 mmHg (32-45)
[2020-12-04 16:14] VITALS: BP 125/64
[2020-12-04 19:41] VITALS: BP 114/58
[2020-12-04] MEDS: BENZOCAINE/MENTH/CETYLPYRD CL 1 EACH LOZENGE MM PRN (21:00)
[2020-12-04] MEDS: INSULIN GLARGINE 100 UNITS/ML 10 ML VIAL SQ SCH (21:26)
[2020-12-04 23:42] VITALS: BP 130/53
[2020-12-05] MEDS: NACL NASAL SPRAY 120 SPRAY/BOTTLE NS SCH ×6 (02:19→21:27)
[2020-12-05] MEDS: FUROSEMIDE 20MG VIAL IV SCH (03:19)
[2020-12-05 03:31] VITALS: BP 122/49
[2020-12-05] MEDS: DOCUSATE SODIUM 100 MG CAP PO SCH ×3 (06:00→21:27)
[2020-12-05] MEDS: LEVOTHYROXINE 50 MCG TABLET PO SCH (06:00)
[2020-12-05 06:16] LABS: BASOPHILS % (AUTO) 0.3 % (0.0-5.0); EOSINOPHILS % (AUTO) 0.2 % (0.0-8.0); HEMATOCRIT 41.3 % (36-48); LYMPHOCYTES % (AUTO) 5.4 % (21.0-51.0); MEAN CORPUSCULAR HEMOGLOBIN 28.9 pg (27.0-33.0); MEAN CORPUSCULAR HGB CONC 33.4 g/dL (32.0-36.0); MEAN CORPUSCULAR VOLUME 86.4 fL (79-99); MONOCYTES % (AUTO) 4.9 % (3.0-13.0); NEUTROPHILS % (AUTO) 86.9 % (40.0-77.0); PLATELET COUNT (AUTO) 361 K/uL (130-400); RED BLOOD CELL COUNT(AUTO) 4.78 MIL/uL (4.00-5.50); RED CELL DISTRIBUTION WIDTH 12.6 % (11.0-15.5); WHITE BLOOD COUNT (AUTO) 18.4 K/uL (4.8-10.8)
[2020-12-05 06:24] LABS: ALBUMIN 2.3 g/dL (3.5-5.0); BILIRUBIN,TOTAL 0.5 mg/dL (0.2-1.0); CREATININE 1.4 mg/dL (0.5-1.5); POTASSIUM 3.8 mmol/L (3.5-5.1); TOTAL PROTEIN, SERUM 7.3 g/dL (6.0-8.3)
[2020-12-05] MEDS: INSULIN HUMULIN R 100 UNIT/ML 3ML SQ SCH ×4 (06:32→21:30)
[2020-12-05 06:40] LABS: CRP QUANTITATIVE 182.1 mg/L (0.00-9.0)
[2020-12-05 08:00] VITALS: BP 118/54
[2020-12-05] MEDS: DIPYRIDAMOLE 25 MG TABLET PO SCH (09:36)
[2020-12-05] MEDS: SENNOSIDES 8.6 MG TABLET PO SCH (09:36)
[2020-12-05] MEDS: GABAPENTIN 300 MG CAPSULE PO SCH ×3 (09:37→21:27)
[2020-12-05] MEDS: Vitamin B Complex/Vit C/Folic Acid PO SCH (09:37)
[2020-12-05] MEDS: POLYETHYLENE GLYCOL 3350 17 GM POWD.PACK PO SCH (09:37)
[2020-12-05] MEDS: AMLODIPINE 5 MG TAB PO SCH (09:37)
[2020-12-05] MEDS: PANTOPRAZOLE 40 MG TAB DR PO SCH (09:37)
[2020-12-05] MEDS: SOLU-MEDROL 125MG VIAL IVP SCH (09:38)
[2020-12-05] MEDS: ENOXAPARIN SODIUM 40 MG/0.4 ML SYRINGE SQ SCH ×2 (09:38→21:26)
[2020-12-05] MEDS: FLUTICASONE PROPIONATE 50MCG/SPRAY 16 GM BOTTLE EN SCH (09:57)
[2020-12-05] MEDS: FLUTICASONE/VILANTEROL 1 EACH BLST.W.DEV IH SCH (09:57)
[2020-12-05 12:00] VITALS: BP 143/61
[2020-12-05] MEDS ORDERED: COMPOUND IV MISC 1 EACH IVSOLN MISC PRN (12:00)
[2020-12-05] MEDS ORDERED: SOLU-MEDROL 40MG VIAL IVP ONE (15:00)
[2020-12-05] MEDS ORDERED: ACETAMINOPHEN 325 MG TAB PO ONE (15:00)
[2020-12-05] MEDS ORDERED: DiphenhydrAMINE HCL 50 MG/ML VIAL IVP ONE (15:00)
[2020-12-05 16:00] VITALS: BP 133/70
[2020-12-05] MEDS ORDERED: [UNRECOGNIZED DRUG - OTHER] IV ONE (16:00)
[2020-12-05] MEDS ORDERED: TOCILIZUMAB IV ONE (16:00)
[2020-12-05 19:00] VITALS: BP 137/71
[2020-12-05] MEDS: INSULIN GLARGINE 100 UNITS/ML 10 ML VIAL SQ SCH (21:29)
[2020-12-05] MEDS ORDERED: HYDROXYZINE 25 MG TABLET PO SCH (22:30)
[2020-12-05 23:00] VITALS: BP 168/79
[2020-12-06 03:00] VITALS: BP 133/66
[2020-12-06 04:52] LABS: BASOPHILS % (AUTO) 0.3 % (0.0-5.0); HEMATOCRIT 41.2 % (36-48); LYMPHOCYTES % (AUTO) 5.4 % (21.0-51.0); MEAN CORPUSCULAR HEMOGLOBIN 27.9 pg (27.0-33.0); MEAN CORPUSCULAR HGB CONC 32.8 g/dL (32.0-36.0); MEAN CORPUSCULAR VOLUME 85.1 fL (79-99); MONOCYTES % (AUTO) 3.6 % (3.0-13.0); NEUTROPHILS % (AUTO) 89.3 % (40.0-77.0); PLATELET COUNT (AUTO) 352 K/uL (130-400); RED BLOOD CELL COUNT(AUTO) 4.84 MIL/uL (4.00-5.50); RED CELL DISTRIBUTION WIDTH 12.4 % (11.0-15.5); WHITE BLOOD COUNT (AUTO) 13.7 K/uL (4.8-10.8)
[2020-12-06 05:12] LABS: ALBUMIN 2.2 g/dL (3.5-5.0); BILIRUBIN,TOTAL 0.5 mg/dL (0.2-1.0); CREATININE 1.1 mg/dL (0.5-1.5); CRP QUANTITATIVE 166.5 mg/L (0.00-9.0); MAGNESIUM 2.3 mg/dL (1.80-2.40)
[2020-12-06] MEDS: INSULIN HUMULIN R 100 UNIT/ML 3ML SQ SCH ×4 (06:05→21:17)
[2020-12-06] MEDS: DOCUSATE SODIUM 100 MG CAP PO SCH ×3 (06:24→21:38)
[2020-12-06] MEDS: LEVOTHYROXINE 50 MCG TABLET PO SCH (06:25)
[2020-12-06] MEDS: NACL NASAL SPRAY 120 SPRAY/BOTTLE NS SCH ×5 (06:26→21:40)
[2020-12-06 08:00] VITALS: BP 139/70
[2020-12-06] MEDS: FLUTICASONE/VILANTEROL 1 EACH BLST.W.DEV IH SCH (09:00)
[2020-12-06] MEDS: FLUTICASONE PROPIONATE 50MCG/SPRAY 16 GM BOTTLE EN SCH (09:00)
[2020-12-06 11:54] VITALS: BP 125/66
[2020-12-06] MEDS: ENOXAPARIN SODIUM 40 MG/0.4 ML SYRINGE SQ SCH ×2 (12:16→21:38)
[2020-12-06] MEDS: POLYETHYLENE GLYCOL 3350 17 GM POWD.PACK PO SCH (12:16)
[2020-12-06] MEDS: DIPYRIDAMOLE 25 MG TABLET PO SCH (12:16)
[2020-12-06] MEDS: SENNOSIDES 8.6 MG TABLET PO SCH (12:17)
[2020-12-06] MEDS: Vitamin B Complex/Vit C/Folic Acid PO SCH (12:17)
[2020-12-06] MEDS: PANTOPRAZOLE 40 MG TAB DR PO SCH (12:17)
[2020-12-06] MEDS: GABAPENTIN 300 MG CAPSULE PO SCH ×3 (12:17→21:40)
[2020-12-06] MEDS: AMLODIPINE 5 MG TAB PO SCH (12:18)
[2020-12-06] MEDS: SOLU-MEDROL 125MG VIAL IVP SCH (12:18)
[2020-12-06 16:48] VITALS: BP 147/69
[2020-12-06 19:00] VITALS: BP 154/64
[2020-12-06] MEDS: INSULIN GLARGINE 100 UNITS/ML 10 ML VIAL SQ SCH (21:18)
[2020-12-06] MEDS: BENZOCAINE/MENTH/CETYLPYRD CL 1 EACH LOZENGE MM PRN (21:38)
[2020-12-06 23:00] VITALS: BP 138/61
[2020-12-07] MEDS: NACL NASAL SPRAY 120 SPRAY/BOTTLE NS SCH ×6 (02:02→21:21)
[2020-12-07 03:00] VITALS: BP 139/53
[2020-12-07 05:45] LABS: ALBUMIN 2.1 g/dL (3.5-5.0); BILIRUBIN,TOTAL 0.4 mg/dL (0.2-1.0); CRP QUANTITATIVE 54.7 mg/L (0.00-9.0); POTASSIUM 3.9 mmol/L (3.5-5.1); TOTAL PROTEIN, SERUM 6.3 g/dL (6.0-8.3)
[2020-12-07] MEDS: LEVOTHYROXINE 50 MCG TABLET PO SCH (06:19)
[2020-12-07] MEDS: DOCUSATE SODIUM 100 MG CAP PO SCH ×3 (06:19→21:20)
[2020-12-07] MEDS: INSULIN HUMULIN R 100 UNIT/ML 3ML SQ SCH ×4 (06:20→21:23)
[2020-12-07 08:00] VITALS: BP 134/62
[2020-12-07] MEDS: FUROSEMIDE 20MG VIAL IV SCH (08:31)
[2020-12-07] MEDS: SENNOSIDES 8.6 MG TABLET PO SCH (08:31)
[2020-12-07] MEDS: SOLU-MEDROL 125MG VIAL IVP SCH (08:31)
[2020-12-07] MEDS: POLYETHYLENE GLYCOL 3350 17 GM POWD.PACK PO SCH (08:31)
[2020-12-07] MEDS: PANTOPRAZOLE 40 MG TAB DR PO SCH (08:32)
[2020-12-07] MEDS: Vitamin B Complex/Vit C/Folic Acid PO SCH (08:32)
[2020-12-07] MEDS: DIPYRIDAMOLE 25 MG TABLET PO SCH (08:32)
[2020-12-07] MEDS: ENOXAPARIN SODIUM 40 MG/0.4 ML SYRINGE SQ SCH ×2 (08:32→21:21)
[2020-12-07] MEDS: AMLODIPINE 5 MG TAB PO SCH (08:32)
[2020-12-07] MEDS: FLUTICASONE/VILANTEROL 1 EACH BLST.W.DEV IH SCH (08:33)
[2020-12-07] MEDS: FLUTICASONE PROPIONATE 50MCG/SPRAY 16 GM BOTTLE EN SCH (08:33)
[2020-12-07] MEDS: GABAPENTIN 300 MG CAPSULE PO SCH ×3 (08:35→21:20)
[2020-12-07 12:00] VITALS: BP 149/57
[2020-12-07] MEDS ORDERED: PHARMACY COMMUNICATION MISC SCH (13:00)
[2020-12-07] MEDS: BIOTENE 44.3 ML SOLUTION MM SCH ×2 (13:00→21:19)
[2020-12-07 16:00] VITALS: BP 144/63
[2020-12-07 19:00] VITALS: BP 124/63
[2020-12-07] MEDS: INSULIN GLARGINE 100 UNITS/ML 10 ML VIAL SQ SCH (21:23)
[2020-12-07] MEDS: BISACODYL 10 MG SUPP.RECT RC PRN (21:46)
[2020-12-07 23:00] VITALS: BP 154/71
[2020-12-08] MEDS: NACL NASAL SPRAY 120 SPRAY/BOTTLE NS SCH ×6 (02:02→21:18)
[2020-12-08 03:00] VITALS: BP 161/68
[2020-12-08] MEDS: LEVOTHYROXINE 50 MCG TABLET PO SCH (05:59)
[2020-12-08] MEDS: DOCUSATE SODIUM 100 MG CAP PO SCH ×3 (05:59→21:14)
[2020-12-08] MEDS: INSULIN HUMULIN R 100 UNIT/ML 3ML SQ SCH ×4 (05:59→21:28)
[2020-12-08 06:43] LABS: BASOPHILS % (AUTO) 0.2 % (0.0-5.0); EOSINOPHILS % (AUTO) 1.6 % (0.0-8.0); HEMATOCRIT 40.7 % (36-48); LYMPHOCYTES % (AUTO) 11.4 % (21.0-51.0); MEAN CORPUSCULAR HEMOGLOBIN 28.2 pg (27.0-33.0); MEAN CORPUSCULAR HGB CONC 32.9 g/dL (32.0-36.0); MEAN CORPUSCULAR VOLUME 85.7 fL (79-99); MONOCYTES % (AUTO) 3.6 % (3.0-13.0); NEUTROPHILS % (AUTO) 81.9 % (40.0-77.0); PLATELET COUNT (AUTO) 347 K/uL (130-400); RED BLOOD CELL COUNT(AUTO) 4.75 MIL/uL (4.00-5.50); RED CELL DISTRIBUTION WIDTH 12.4 % (11.0-15.5); WHITE BLOOD COUNT (AUTO) 12.8 K/uL (4.8-10.8)
[2020-12-08 06:56] LABS: ALBUMIN 2.3 g/dL (3.5-5.0); BILIRUBIN,TOTAL 0.5 mg/dL (0.2-1.0); CREATININE 1.1 mg/dL (0.5-1.5); CRP QUANTITATIVE 24.4 mg/L (0.00-9.0); POTASSIUM 3.7 mmol/L (3.5-5.1); TOTAL PROTEIN, SERUM 6.2 g/dL (6.0-8.3)
[2020-12-08] MEDS: FLUTICASONE/VILANTEROL 1 EACH BLST.W.DEV IH SCH (07:52)
[2020-12-08] MEDS: FLUTICASONE PROPIONATE 50MCG/SPRAY 16 GM BOTTLE EN SCH (07:52)
[2020-12-08] MEDS: Vitamin B Complex/Vit C/Folic Acid PO SCH (08:23)
[2020-12-08] MEDS: SOLU-MEDROL 125MG VIAL IVP SCH (08:23)
[2020-12-08] MEDS: FUROSEMIDE 20MG VIAL IV SCH (08:23)
[2020-12-08] MEDS: SENNOSIDES 8.6 MG TABLET PO SCH (08:24)
[2020-12-08] MEDS: PANTOPRAZOLE 40 MG TAB DR PO SCH (08:24)
[2020-12-08] MEDS: DIPYRIDAMOLE 25 MG TABLET PO SCH (08:24)
[2020-12-08] MEDS: POLYETHYLENE GLYCOL 3350 17 GM POWD.PACK PO SCH (08:24)
[2020-12-08] MEDS: GABAPENTIN 300 MG CAPSULE PO SCH ×3 (08:24→21:16)
[2020-12-08] MEDS: ENOXAPARIN SODIUM 40 MG/0.4 ML SYRINGE SQ SCH ×2 (08:25→21:20)
[2020-12-08 08:26] VITALS: BP 146/75
[2020-12-08] MEDS: AMLODIPINE 5 MG TAB PO SCH (08:27)
[2020-12-08] MEDS: BIOTENE 44.3 ML SOLUTION MM SCH ×2 (08:49→21:20)
[2020-12-08 12:28] VITALS: BP 143/75
[2020-12-08 15:58] VITALS: BP 129/65
[2020-12-08 20:15] VITALS: BP 103/52
[2020-12-08] MEDS: INSULIN GLARGINE 100 UNITS/ML 10 ML VIAL SQ SCH (21:29)
[2020-12-09 00:15] VITALS: BP 121/70
[2020-12-09] MEDS: NACL NASAL SPRAY 120 SPRAY/BOTTLE NS SCH ×6 (02:00→21:38)
[2020-12-09 04:20] VITALS: BP 134/59
[2020-12-09 04:39] LABS: CRP QUANTITATIVE 14.3 mg/L (0.00-9.0); MAGNESIUM 2.4 mg/dL (1.80-2.40)
[2020-12-09] MEDS: DOCUSATE SODIUM 100 MG CAP PO SCH ×3 (06:06→21:33)
[2020-12-09] MEDS: LEVOTHYROXINE 50 MCG TABLET PO SCH (06:06)
[2020-12-09] MEDS: INSULIN HUMULIN R 100 UNIT/ML 3ML SQ SCH ×4 (06:07→21:49)
[2020-12-09 08:14] VITALS: BP 149/77
[2020-12-09 08:20] LABS: POTASSIUM 3.7 mmol/L (3.5-5.1)
[2020-12-09] MEDS: POLYETHYLENE GLYCOL 3350 17 GM POWD.PACK PO SCH (09:25)
[2020-12-09] MEDS: FUROSEMIDE 20MG VIAL IV SCH (09:26)
[2020-12-09] MEDS: DIPYRIDAMOLE 25 MG TABLET PO SCH (09:26)
[2020-12-09] MEDS: AMLODIPINE 5 MG TAB PO SCH (09:26)
[2020-12-09] MEDS: Vitamin B Complex/Vit C/Folic Acid PO SCH (09:26)
[2020-12-09] MEDS: SOLU-MEDROL 125MG VIAL IVP SCH (09:26)
[2020-12-09] MEDS: SENNOSIDES 8.6 MG TABLET PO SCH (09:26)
[2020-12-09] MEDS: PANTOPRAZOLE 40 MG TAB DR PO SCH (09:26)
[2020-12-09] MEDS: GABAPENTIN 300 MG CAPSULE PO SCH ×3 (09:27→21:34)
[2020-12-09] MEDS: ENOXAPARIN SODIUM 40 MG/0.4 ML SYRINGE SQ SCH ×2 (09:29→21:34)
[2020-12-09] MEDS: FLUTICASONE/VILANTEROL 1 EACH BLST.W.DEV IH SCH (09:29)
[2020-12-09] MEDS: BIOTENE 44.3 ML SOLUTION MM SCH ×2 (09:29→21:38)
[2020-12-09] MEDS: FLUTICASONE PROPIONATE 50MCG/SPRAY 16 GM BOTTLE EN SCH (09:30)
[2020-12-09] MEDS: CLOTRIMAZOLE 10 MG TROCHE MM SCH ×3 (10:30→21:37)
[2020-12-09 11:37] VITALS: BP 137/73
[2020-12-09 16:06] VITALS: BP 137/78
[2020-12-09] MEDS ORDERED: KCL 20 MEQ ERTAB PO SCH (16:45)
[2020-12-09 20:15] VITALS: BP 112/60
[2020-12-09] MEDS: INSULIN GLARGINE 100 UNITS/ML 10 ML VIAL SQ SCH (21:49)
[2020-12-10] VITALS (7 sets, daily range): BP systolic 111–156; BP diastolic 62–79
[2020-12-10] MEDS: NACL NASAL SPRAY 120 SPRAY/BOTTLE NS SCH ×6 (02:00→22:01)
[2020-12-10] MEDS: CLOTRIMAZOLE 10 MG TROCHE MM SCH ×4 (06:14→21:40)
[2020-12-10] MEDS: LEVOTHYROXINE 50 MCG TABLET PO SCH (06:14)
[2020-12-10] MEDS: DOCUSATE SODIUM 100 MG CAP PO SCH ×3 (06:14→21:40)
[2020-12-10 06:18] LABS: BASOPHILS % (AUTO) 0.4 % (0.0-5.0); EOSINOPHILS % (AUTO) 0.4 % (0.0-8.0); HEMATOCRIT 42.9 % (36-48); LYMPHOCYTES % (AUTO) 9.6 % (21.0-51.0); MEAN CORPUSCULAR HEMOGLOBIN 28.4 pg (27.0-33.0); MEAN CORPUSCULAR HGB CONC 32.9 g/dL (32.0-36.0); MEAN CORPUSCULAR VOLUME 86.5 fL (79-99); MONOCYTES % (AUTO) 3.3 % (3.0-13.0); NEUTROPHILS % (AUTO) 84.1 % (40.0-77.0); PLATELET COUNT (AUTO) 345 K/uL (130-400); RED BLOOD CELL COUNT(AUTO) 4.96 MIL/uL (4.00-5.50); RED CELL DISTRIBUTION WIDTH 12.5 % (11.0-15.5); WHITE BLOOD COUNT (AUTO) 15.8 K/uL (4.8-10.8)
[2020-12-10] MEDS: INSULIN HUMULIN R 100 UNIT/ML 3ML SQ SCH ×4 (06:28→21:44)
[2020-12-10 06:31] LABS: ALBUMIN 2.5 g/dL (3.5-5.0); BILIRUBIN,TOTAL 0.5 mg/dL (0.2-1.0); CREATININE 1.1 mg/dL (0.5-1.5); CRP QUANTITATIVE 8.5 mg/L (0.00-9.0); POTASSIUM 4.6 mmol/L (3.5-5.1); TOTAL PROTEIN, SERUM 6.4 g/dL (6.0-8.3)
[2020-12-10] MEDS: FLUTICASONE/VILANTEROL 1 EACH BLST.W.DEV IH SCH (09:26)
[2020-12-10] MEDS: FLUTICASONE PROPIONATE 50MCG/SPRAY 16 GM BOTTLE EN SCH (09:27)
[2020-12-10] MEDS: BIOTENE 44.3 ML SOLUTION MM SCH ×2 (09:27→22:00)
[2020-12-10] MEDS: DIPYRIDAMOLE 25 MG TABLET PO SCH (09:46)
[2020-12-10] MEDS: PANTOPRAZOLE 40 MG TAB DR PO SCH (09:46)
[2020-12-10] MEDS: POLYETHYLENE GLYCOL 3350 17 GM POWD.PACK PO SCH (09:46)
[2020-12-10] MEDS: SOLU-MEDROL 125MG VIAL IVP SCH (09:46)
[2020-12-10] MEDS: SENNOSIDES 8.6 MG TABLET PO SCH (09:46)
[2020-12-10] MEDS: Vitamin B Complex/Vit C/Folic Acid PO SCH (09:46)
[2020-12-10] MEDS: AMLODIPINE 5 MG TAB PO SCH (09:46)
[2020-12-10] MEDS: GABAPENTIN 300 MG CAPSULE PO SCH ×3 (09:47→21:40)
[2020-12-10] MEDS: FUROSEMIDE 20MG VIAL IV SCH (09:48)
[2020-12-10] MEDS: ENOXAPARIN SODIUM 40 MG/0.4 ML SYRINGE SQ SCH ×2 (09:49→21:41)
[2020-12-10] MEDS: INSULIN GLARGINE 100 UNITS/ML 10 ML VIAL SQ SCH (21:43)
[2020-12-11] MEDS: NACL NASAL SPRAY 120 SPRAY/BOTTLE NS SCH ×6 (02:29→21:01)
[2020-12-11] MEDS: CLOTRIMAZOLE 10 MG TROCHE MM SCH ×4 (02:29→20:54)
[2020-12-11 04:10] VITALS: BP 152/58
[2020-12-11] MEDS: DOCUSATE SODIUM 100 MG CAP PO SCH ×3 (06:13→20:55)
[2020-12-11] MEDS: LEVOTHYROXINE 50 MCG TABLET PO SCH (06:13)
[2020-12-11] MEDS: INSULIN HUMULIN R 100 UNIT/ML 3ML SQ SCH ×4 (06:20→21:13)
[2020-12-11 08:13] VITALS: BP 171/93
[2020-12-11] MEDS: SENNOSIDES 8.6 MG TABLET PO SCH (09:14)
[2020-12-11] MEDS: DIPYRIDAMOLE 25 MG TABLET PO SCH (09:14)
[2020-12-11] MEDS: GABAPENTIN 300 MG CAPSULE PO SCH ×3 (09:14→20:55)
[2020-12-11] MEDS: PANTOPRAZOLE 40 MG TAB DR PO SCH (09:14)
[2020-12-11] MEDS: AMLODIPINE 5 MG TAB PO SCH (09:15)
[2020-12-11] MEDS: POLYETHYLENE GLYCOL 3350 17 GM POWD.PACK PO SCH (09:16)
[2020-12-11] MEDS: SOLU-MEDROL 125MG VIAL IVP SCH (09:16)
[2020-12-11] MEDS: FUROSEMIDE 20MG VIAL IV SCH (09:16)
[2020-12-11] MEDS: ENOXAPARIN SODIUM 40 MG/0.4 ML SYRINGE SQ SCH ×2 (09:17→20:54)
[2020-12-11] MEDS: BIOTENE 44.3 ML SOLUTION MM SCH ×2 (09:20→21:00)
[2020-12-11] MEDS: Vitamin B Complex/Vit C/Folic Acid PO SCH (09:20)
[2020-12-11] MEDS: FLUTICASONE/VILANTEROL 1 EACH BLST.W.DEV IH SCH (09:21)
[2020-12-11] MEDS: FLUTICASONE PROPIONATE 50MCG/SPRAY 16 GM BOTTLE EN SCH (09:21)
[2020-12-11 12:24] VITALS: BP 164/77
[2020-12-11 16:17] VITALS: BP 151/67
[2020-12-11 20:20] VITALS: BP 133/64
[2020-12-11] MEDS: INSULIN GLARGINE 100 UNITS/ML 10 ML VIAL SQ SCH (20:58)
[2020-12-11 23:57] VITALS: BP 107/62
[2020-12-12] MEDS: CLOTRIMAZOLE 10 MG TROCHE MM SCH ×4 (02:04→21:30)
[2020-12-12] MEDS: NACL NASAL SPRAY 120 SPRAY/BOTTLE NS SCH ×6 (02:05→21:31)
[2020-12-12 04:17] VITALS: BP 143/74
[2020-12-12 05:02] LABS: BASOPHILS % (AUTO) 0.4 % (0.0-5.0); EOSINOPHILS % (AUTO) 3.9 % (0.0-8.0); HEMATOCRIT 42.3 % (36-48); LYMPHOCYTES % (AUTO) 12.1 % (21.0-51.0); MEAN CORPUSCULAR HEMOGLOBIN 28.2 pg (27.0-33.0); MEAN CORPUSCULAR HGB CONC 33.1 g/dL (32.0-36.0); MEAN CORPUSCULAR VOLUME 85.3 fL (79-99); MONOCYTES % (AUTO) 3.5 % (3.0-13.0); NEUTROPHILS % (AUTO) 76.8 % (40.0-77.0); PLATELET COUNT (AUTO) 297 K/uL (130-400); RED BLOOD CELL COUNT(AUTO) 4.96 MIL/uL (4.00-5.50); RED CELL DISTRIBUTION WIDTH 12.7 % (11.0-15.5); WHITE BLOOD COUNT (AUTO) 16.5 K/uL (4.8-10.8)
[2020-12-12 05:34] LABS: CRP QUANTITATIVE 4.6 mg/L (0.00-9.0); POTASSIUM 3.6 mmol/L (3.5-5.1)
[2020-12-12] MEDS: DOCUSATE SODIUM 100 MG CAP PO SCH ×3 (05:39→21:30)
[2020-12-12] MEDS: LEVOTHYROXINE 50 MCG TABLET PO SCH (05:39)
[2020-12-12] MEDS: INSULIN HUMULIN R 100 UNIT/ML 3ML SQ SCH ×4 (05:40→21:44)
[2020-12-12 08:00] VITALS: BP 131/68
[2020-12-12] MEDS: Vitamin B Complex/Vit C/Folic Acid PO SCH (08:33)
[2020-12-12] MEDS: SOLU-MEDROL 125MG VIAL IVP SCH (08:33)
[2020-12-12] MEDS: SENNOSIDES 8.6 MG TABLET PO SCH (08:33)
[2020-12-12] MEDS: PANTOPRAZOLE 40 MG TAB DR PO SCH (08:33)
[2020-12-12] MEDS: DIPYRIDAMOLE 25 MG TABLET PO SCH (08:33)
[2020-12-12] MEDS: GABAPENTIN 300 MG CAPSULE PO SCH ×3 (08:33→21:30)
[2020-12-12] MEDS: AMLODIPINE 5 MG TAB PO SCH (08:33)
[2020-12-12] MEDS: POLYETHYLENE GLYCOL 3350 17 GM POWD.PACK PO SCH (08:33)
[2020-12-12] MEDS: ENOXAPARIN SODIUM 40 MG/0.4 ML SYRINGE SQ SCH (08:34)
[2020-12-12] MEDS: FUROSEMIDE 20MG VIAL IV SCH (08:41)
[2020-12-12] MEDS: BIOTENE 44.3 ML SOLUTION MM SCH ×2 (08:41→21:30)
[2020-12-12] MEDS: FLUTICASONE PROPIONATE 50MCG/SPRAY 16 GM BOTTLE EN SCH (08:42)
[2020-12-12] MEDS: FLUTICASONE/VILANTEROL 1 EACH BLST.W.DEV IH SCH (08:42)
[2020-12-12 13:39] VITALS: BP 100/60
[2020-12-12 17:21] VITALS: BP 114/64
[2020-12-12 21:11] VITALS: BP 148/65
[2020-12-12] MEDS: INSULIN GLARGINE 100 UNITS/ML 10 ML VIAL SQ SCH (21:44)
[2020-12-12 23:58] VITALS: BP 106/69
[2020-12-13] MEDS: NACL NASAL SPRAY 120 SPRAY/BOTTLE NS SCH ×6 (01:42→21:24)
[2020-12-13] MEDS: LEVOTHYROXINE 50 MCG TABLET PO SCH (04:33)
[2020-12-13] MEDS: CLOTRIMAZOLE 10 MG TROCHE MM SCH ×4 (04:33→21:24)
[2020-12-13 04:49] VITALS: BP 129/53
[2020-12-13 04:59] LABS: BASOPHILS % (AUTO) 0.6 % (0.0-5.0); EOSINOPHILS % (AUTO) 2.9 % (0.0-8.0); HEMATOCRIT 43.5 % (36-48); LYMPHOCYTES % (AUTO) 11.1 % (21.0-51.0); MEAN CORPUSCULAR HEMOGLOBIN 28.1 pg (27.0-33.0); MEAN CORPUSCULAR HGB CONC 32.2 g/dL (32.0-36.0); MEAN CORPUSCULAR VOLUME 87.2 fL (79-99); MONOCYTES % (AUTO) 3.8 % (3.0-13.0); NEUTROPHILS % (AUTO) 77.1 % (40.0-77.0); PLATELET COUNT (AUTO) 348 K/uL (130-400); RED BLOOD CELL COUNT(AUTO) 4.99 MIL/uL (4.00-5.50); RED CELL DISTRIBUTION WIDTH 12.7 % (11.0-15.5)
[2020-12-13 05:09] LABS: CREATININE 1.1 mg/dL (0.5-1.5); POTASSIUM 3.8 mmol/L (3.5-5.1)
[2020-12-13 05:58] LABS: CRP QUANTITATIVE 22.3 mg/L (0.00-9.0)
[2020-12-13] MEDS: DOCUSATE SODIUM 100 MG CAP PO SCH ×3 (06:27→21:24)
[2020-12-13] MEDS: INSULIN HUMULIN R 100 UNIT/ML 3ML SQ SCH ×4 (06:32→21:46)
[2020-12-13] MEDS: PANTOPRAZOLE 40 MG TAB DR PO SCH (08:22)
[2020-12-13] MEDS: POLYETHYLENE GLYCOL 3350 17 GM POWD.PACK PO SCH (08:22)
[2020-12-13] MEDS: GABAPENTIN 300 MG CAPSULE PO SCH ×3 (08:22→21:23)
[2020-12-13] MEDS: SOLU-MEDROL 125MG VIAL IVP SCH (08:22)
[2020-12-13] MEDS: Vitamin B Complex/Vit C/Folic Acid PO SCH (08:22)
[2020-12-13] MEDS: DIPYRIDAMOLE 25 MG TABLET PO SCH (08:22)
[2020-12-13] MEDS: SENNOSIDES 8.6 MG TABLET PO SCH (08:22)
[2020-12-13] MEDS: AMLODIPINE 5 MG TAB PO SCH (08:22)
[2020-12-13] MEDS: FUROSEMIDE 20MG VIAL IV SCH (08:23)
[2020-12-13 08:30] VITALS: BP 130/70
[2020-12-13] MEDS: FLUTICASONE/VILANTEROL 1 EACH BLST.W.DEV IH SCH (08:56)
[2020-12-13] MEDS: FLUTICASONE PROPIONATE 50MCG/SPRAY 16 GM BOTTLE EN SCH (08:56)
[2020-12-13] MEDS: BIOTENE 44.3 ML SOLUTION MM SCH ×2 (08:56→21:25)
[2020-12-13] MEDS: ENOXAPARIN SODIUM 40 MG/0.4 ML SYRINGE SQ SCH ×2 (09:00→21:00)
[2020-12-13 11:49] VITALS: BP 129/82
[2020-12-13] MEDS: ALBUTEROL INHALER 90MCG/INH IH SCH ×2 (16:22→21:25)
[2020-12-13 16:40] VITALS: BP 125/78
[2020-12-13 17:11] LABS: CREATINE KINASE, TOTAL 45 U/L (21-232); MYOGLOBIN 218 ng/mL (10-92); TROPONIN I < 0.04 ng/mL (0.00-0.06)
[2020-12-13 20:10] VITALS: BP 117/74
[2020-12-13] MEDS ORDERED: BUDESONIDE 0.25 MG/2 ML INH IH SCH (21:00)
[2020-12-13] MEDS: INSULIN GLARGINE 100 UNITS/ML 10 ML VIAL SQ SCH (21:46)
[2020-12-13 23:40] VITALS: BP 124/65
[2020-12-14] MEDS: NACL NASAL SPRAY 120 SPRAY/BOTTLE NS SCH ×6 (02:00→20:20)
[2020-12-14 03:19] LABS: ABG BASE EXCESS 5.6 mmol/L (-2.0-3.0); ABG OXYGEN SATURATION 93.6 % (95.0-99.0); ABG PCO2 38 mmHg (32-45)
[2020-12-14 04:18] LABS: BASOPHILS % (AUTO) 0.9 % (0.0-5.0); EOSINOPHILS % (AUTO) 1.1 % (0.0-8.0); HEMATOCRIT 48.1 % (36-48); LYMPHOCYTES % (AUTO) 11.2 % (21.0-51.0); MEAN CORPUSCULAR HEMOGLOBIN 28.4 pg (27.0-33.0); MEAN CORPUSCULAR HGB CONC 32.8 g/dL (32.0-36.0); MEAN CORPUSCULAR VOLUME 86.4 fL (79-99); NEUTROPHILS % (AUTO) 78.2 % (40.0-77.0); NUCLEATED RED BLOOD CELLS 0.2 % (0.0-0.19); PLATELET COUNT (AUTO) 231 K/uL (130-400); RED BLOOD CELL COUNT(AUTO) 5.57 MIL/uL (4.00-5.50); WHITE BLOOD COUNT (AUTO) 17.6 K/uL (4.8-10.8)
[2020-12-14 04:22] LABS: CREATININE 1.4 mg/dL (0.5-1.5); POTASSIUM 3.9 mmol/L (3.5-5.1)
[2020-12-14] MEDS: CLOTRIMAZOLE 10 MG TROCHE MM SCH ×4 (06:04→20:20)
[2020-12-14] MEDS: LEVOTHYROXINE 50 MCG TABLET PO SCH (06:04)
[2020-12-14] MEDS: DOCUSATE SODIUM 100 MG CAP PO SCH ×3 (06:04→20:19)
[2020-12-14] MEDS: BISACODYL 10 MG SUPP.RECT RC PRN (06:04)
[2020-12-14] MEDS: ALBUTEROL INHALER 90MCG/INH IH SCH ×4 (06:09→20:20)
[2020-12-14 06:12] VITALS: BP 123/58
[2020-12-14] MEDS: INSULIN HUMULIN R 100 UNIT/ML 3ML SQ SCH ×4 (06:32→20:24)
[2020-12-14 08:00] VITALS: BP 116/75
[2020-12-14] MEDS: DIPYRIDAMOLE 25 MG TABLET PO SCH (08:56)
[2020-12-14] MEDS: AMLODIPINE 5 MG TAB PO SCH (08:56)
[2020-12-14] MEDS: POLYETHYLENE GLYCOL 3350 17 GM POWD.PACK PO SCH (08:56)
[2020-12-14] MEDS: PANTOPRAZOLE 40 MG TAB DR PO SCH (08:56)
[2020-12-14] MEDS: SENNOSIDES 8.6 MG TABLET PO SCH (08:56)
[2020-12-14] MEDS: GABAPENTIN 300 MG CAPSULE PO SCH ×3 (08:56→20:20)
[2020-12-14] MEDS: SOLU-MEDROL 125MG VIAL IVP SCH (08:56)
[2020-12-14] MEDS: Vitamin B Complex/Vit C/Folic Acid PO SCH (08:56)
[2020-12-14] MEDS: FUROSEMIDE 20MG VIAL IV SCH ×2 (08:56→09:00)
[2020-12-14] MEDS: ENOXAPARIN SODIUM 40 MG/0.4 ML SYRINGE SQ SCH ×2 (09:00→20:20)
[2020-12-14] MEDS: FLUTICASONE PROPIONATE 50MCG/SPRAY 16 GM BOTTLE EN SCH (09:00)
[2020-12-14] MEDS: FLUTICASONE/VILANTEROL 1 EACH BLST.W.DEV IH SCH (09:01)
[2020-12-14] MEDS: BIOTENE 44.3 ML SOLUTION MM SCH ×2 (09:01→20:20)
[2020-12-14] MEDS ORDERED: FUROSEMIDE 40MG VIAL IV SCH (11:15)
[2020-12-14 12:00] VITALS: BP 126/71
[2020-12-14] MEDS ORDERED: LACTATED RINGERS 1000ML IV SCH (13:00)
[2020-12-14 16:00] VITALS: BP 98/54
[2020-12-14 20:00] VITALS: BP 128/74
[2020-12-14] MEDS: INSULIN GLARGINE 100 UNITS/ML 10 ML VIAL SQ SCH (20:25)
[2020-12-15] VITALS (7 sets, daily range): BP systolic 93–143; BP diastolic 52–78
[2020-12-15] MEDS: NACL NASAL SPRAY 120 SPRAY/BOTTLE NS SCH ×6 (02:27→20:19)
[2020-12-15 04:34] LABS: HEMATOCRIT 42.9 % (36-48); MEAN CORPUSCULAR HEMOGLOBIN 28.2 pg (27.0-33.0); MEAN CORPUSCULAR HGB CONC 32.6 g/dL (32.0-36.0); MEAN CORPUSCULAR VOLUME 86.5 fL (79-99); NUCLEATED RED BLOOD CELLS 0.3 % (0.0-0.19); PLATELET COUNT (AUTO) 311 K/uL (130-400); RED BLOOD CELL COUNT(AUTO) 4.96 MIL/uL (4.00-5.50); RED CELL DISTRIBUTION WIDTH 13.2 % (11.0-15.5); WHITE BLOOD COUNT (AUTO) 20.2 K/uL (4.8-10.8)
[2020-12-15] MEDS: CLOTRIMAZOLE 10 MG TROCHE MM SCH ×4 (04:39→20:19)
[2020-12-15] MEDS: ALBUTEROL INHALER 90MCG/INH IH SCH ×4 (04:40→20:19)
[2020-12-15 04:49] LABS: CREATININE 1.5 mg/dL (0.5-1.5); PHOSPHORUS 4.7 mg/dL (2.5-4.9); POTASSIUM 3.8 mmol/L (3.5-5.1)
[2020-12-15 04:58] LABS: BAND NEUTROPHILS % (MANUAL) 3 % (0-2); LYMPHOCYTES % (MANUAL) 18 % (22-44); MAN.DIFF COMMENT-IMPRESSION MANUAL DIFFERENTIAL; MONOCYTES % (MANUAL) 5 % (2-9); SEGMENTED NEUTROPHILS % 74 % (40-70)
[2020-12-15] MEDS: DOCUSATE SODIUM 100 MG CAP PO SCH ×3 (05:20→20:19)
[2020-12-15] MEDS: LEVOTHYROXINE 50 MCG TABLET PO SCH (05:20)
[2020-12-15] MEDS: INSULIN HUMULIN R 100 UNIT/ML 3ML SQ SCH ×4 (06:34→20:22)
[2020-12-15] MEDS: POLYETHYLENE GLYCOL 3350 17 GM POWD.PACK PO SCH (08:19)
[2020-12-15] MEDS: SENNOSIDES 8.6 MG TABLET PO SCH (08:19)
[2020-12-15] MEDS: Vitamin B Complex/Vit C/Folic Acid PO SCH (08:19)
[2020-12-15] MEDS: SOLU-MEDROL 125MG VIAL IVP SCH (08:19)
[2020-12-15] MEDS: DIPYRIDAMOLE 25 MG TABLET PO SCH (08:19)
[2020-12-15] MEDS: PANTOPRAZOLE 40 MG TAB DR PO SCH (08:19)
[2020-12-15] MEDS: GABAPENTIN 300 MG CAPSULE PO SCH ×3 (08:19→20:19)
[2020-12-15] MEDS: ONDANSETRON 4MG INJ IVP PRN ×2 (08:33→15:01)
[2020-12-15] MEDS: ENOXAPARIN SODIUM 40 MG/0.4 ML SYRINGE SQ SCH (09:00)
[2020-12-15] MEDS: BIOTENE 44.3 ML SOLUTION MM SCH ×2 (10:20→20:18)
[2020-12-15] MEDS: FLUTICASONE PROPIONATE 50MCG/SPRAY 16 GM BOTTLE EN SCH (10:20)
[2020-12-15] MEDS: FLUTICASONE/VILANTEROL 1 EACH BLST.W.DEV IH SCH (10:20)
[2020-12-15] MEDS ORDERED: FUROSEMIDE 40MG VIAL IV SCH (12:00)
[2020-12-15] MEDS: LACTULOSE 20 GM/30 ML UDCUP PO SCH ×2 (12:50→20:20)
[2020-12-15 16:25] LABS: APPEARANCE,URINE CLOUDY (CLEAR); BILIRUBIN,URINE SMALL (NEGATIVE); COLOR,URINE YELLOW (YELLOW); GLUCOSE, URINE (UA) NEGATIVE (NEGATIVE); KETONES,URINE NEGATIVE (NEGATIVE); LEUKOCYTE ESTERASE ,URINE SMALL (NEGATIVE); NITRATE,URINE NEGATIVE (NEGATIVE); OCCULT BLOOD,URINE LARGE (NEGATIVE); PROTEIN,URINE TRACE mg/dL (NEGATIVE); UROBILINOGEN,URINE 0.2 mg/dL (0.2-1.0)
[2020-12-15 16:32] LABS: BACTERIA,URINE Few /HPF (None Seen); WBC,URINE 26-50 /HPF (0-1)
[2020-12-15 16:33] LABS: MUCUS,URINE Rare LPF (None Seen); SQUAMOUS EPITHELIAL CELL,UR Rare /HPF (0-2); TRANSITIONAL EPI CELLS,URINE Few /HPF (None Seen)
[2020-12-15 16:34] LABS: HYALINE CASTS, URINE 0-1 /LPF (0-1 /LPF)
[2020-12-15] MEDS ORDERED: PHARMACY COMMUNICATION MISC SCH (16:45)
[2020-12-15] MEDS: CEFEPIME HCL 1 GM VIAL IVP SCH (17:36)
[2020-12-15] MEDS: METOCLOPRAMIDE 10 MG/2 ML VIAL IVP SCH (20:18)
[2020-12-15] MEDS: INSULIN GLARGINE 100 UNITS/ML 10 ML VIAL SQ SCH (20:23)
[2020-12-16] VITALS (36 sets, daily range): BP systolic 93–135; BP diastolic 55–83
[2020-12-16] MEDS: ALBUTEROL INHALER 90MCG/INH IH SCH ×4 (02:46→22:37)
[2020-12-16] MEDS: NACL NASAL SPRAY 120 SPRAY/BOTTLE NS SCH ×6 (02:46→22:37)
[2020-12-16] MEDS: METOCLOPRAMIDE 10 MG/2 ML VIAL IVP SCH ×3 (02:49→20:00)
[2020-12-16] MEDS: LACTULOSE 20 GM/30 ML UDCUP PO SCH ×3 (02:49→20:45)
[2020-12-16] MEDS: CLOTRIMAZOLE 10 MG TROCHE MM SCH ×4 (02:49→21:45)
[2020-12-16] MEDS: LEVOTHYROXINE 50 MCG TABLET PO SCH (05:30)
[2020-12-16] MEDS: DOCUSATE SODIUM 100 MG CAP PO SCH ×3 (05:44→22:00)
[2020-12-16] MEDS: INSULIN HUMULIN R 100 UNIT/ML 3ML SQ SCH ×4 (05:44→21:58)
[2020-12-16 06:24] LABS: BASOPHILS % (AUTO) 0.6 % (0.0-5.0); HEMATOCRIT 44.1 % (36-48); LYMPHOCYTES % (AUTO) 5.7 % (21.0-51.0); MEAN CORPUSCULAR HEMOGLOBIN 28.4 pg (27.0-33.0); MEAN CORPUSCULAR HGB CONC 32.7 g/dL (32.0-36.0); MONOCYTES % (AUTO) 3.7 % (3.0-13.0); NEUTROPHILS % (AUTO) 86.2 % (40.0-77.0); NUCLEATED RED BLOOD CELLS 0.5 % (0.0-0.19); PLATELET COUNT (AUTO) 346 K/uL (130-400); RED BLOOD CELL COUNT(AUTO) 5.07 MIL/uL (4.00-5.50); RED CELL DISTRIBUTION WIDTH 13.6 % (11.0-15.5); WHITE BLOOD COUNT (AUTO) 24.6 K/uL (4.8-10.8)
[2020-12-16 06:52] LABS: CREATININE 1.9 mg/dL (0.5-1.5); POTASSIUM 3.6 mmol/L (3.5-5.1)
[2020-12-16] MEDS: DIPYRIDAMOLE 25 MG TABLET PO SCH (09:00)
[2020-12-16] MEDS: POLYETHYLENE GLYCOL 3350 17 GM POWD.PACK PO SCH (09:00)
[2020-12-16] MEDS: GABAPENTIN 300 MG CAPSULE PO SCH ×3 (09:00→21:00)
[2020-12-16] MEDS: SENNOSIDES 8.6 MG TABLET PO SCH (09:00)
[2020-12-16] MEDS: Vitamin B Complex/Vit C/Folic Acid PO SCH (09:00)
[2020-12-16] MEDS: PANTOPRAZOLE 40 MG TAB DR PO SCH (09:00)
[2020-12-16] MEDS: FLUTICASONE/VILANTEROL 1 EACH BLST.W.DEV IH SCH (09:44)
[2020-12-16] MEDS: BIOTENE 44.3 ML SOLUTION MM SCH ×2 (09:44→22:37)
[2020-12-16] MEDS: FLUTICASONE PROPIONATE 50MCG/SPRAY 16 GM BOTTLE EN SCH (09:44)
[2020-12-16] MEDS: SOLU-MEDROL 125MG VIAL IVP SCH (09:48)
[2020-12-16] MEDS ORDERED: MORPHINE 2 MG SYG ONE (10:45)
[2020-12-16] MEDS ORDERED: MORPHINE 2 MG SYG IVP SCH ×2 (11:00→11:15)
[2020-12-16] MEDS ORDERED: ASPIRIN 300 MG SUPPOSITORY PR SCH (11:15)
[2020-12-16] MEDS: CEFEPIME HCL 1 GM VIAL IVP SCH (16:52)
[2020-12-16] MEDS: INSULIN GLARGINE 100 UNITS/ML 10 ML VIAL SQ SCH (22:00)
[2020-12-16] MEDS: HYDROMORPHONE 0.5 MG SYG (0.5MG/0.5ML) IVP PRN (22:17)
[2020-12-17] VITALS (46 sets, daily range): BP systolic 85–148; BP diastolic 41–97
[2020-12-17] MEDS: NACL NASAL SPRAY 120 SPRAY/BOTTLE NS SCH ×6 (02:09→21:13)
[2020-12-17] MEDS ORDERED: 0.9%NACL 100ML 100 ML IV ONE ×2 (03:09→03:35)
[2020-12-17] MEDS ORDERED: DILTIAZEM 50MG VIAL IV ONE (03:11)
[2020-12-17] MEDS ORDERED: DILTIAZEM 25MG INJ IVP ONE (03:12)
[2020-12-17] MEDS: METOCLOPRAMIDE 10 MG/2 ML VIAL IVP SCH ×3 (03:41→21:11)
[2020-12-17] MEDS: CLOTRIMAZOLE 10 MG TROCHE MM SCH ×4 (03:45→21:14)
[2020-12-17] MEDS: ALBUTEROL INHALER 90MCG/INH IH SCH ×4 (03:54→21:30)
[2020-12-17] MEDS: HYDROMORPHONE 0.5 MG SYG (0.5MG/0.5ML) IVP PRN ×2 (05:07→13:53)
[2020-12-17] MEDS: LEVOTHYROXINE 50 MCG TABLET PO SCH (05:07)
[2020-12-17] MEDS: LACTULOSE 20 GM/30 ML UDCUP PO SCH ×3 (05:07→21:11)
[2020-12-17] MEDS: DOCUSATE SODIUM 100 MG CAP PO SCH ×2 (05:08→14:00)
[2020-12-17 06:23] LABS: BASOPHILS % (AUTO) 0.5 % (0.0-5.0); HEMATOCRIT 44.7 % (36-48); LYMPHOCYTES % (AUTO) 6.1 % (21.0-51.0); MEAN CORPUSCULAR HEMOGLOBIN 28.1 pg (27.0-33.0); MONOCYTES % (AUTO) 3.8 % (3.0-13.0); NEUTROPHILS % (AUTO) 85.7 % (40.0-77.0); NUCLEATED RED BLOOD CELLS 1.1 % (0.0-0.19); PLATELET COUNT (AUTO) 333 K/uL (130-400); RED BLOOD CELL COUNT(AUTO) 5.08 MIL/uL (4.00-5.50); RED CELL DISTRIBUTION WIDTH 13.9 % (11.0-15.5); WHITE BLOOD COUNT (AUTO) 23.5 K/uL (4.8-10.8)
[2020-12-17 06:40] LABS: CREATININE 3.5 mg/dL (0.5-1.5); MAGNESIUM 3.6 mg/dL (1.80-2.40); POTASSIUM 4.2 mmol/L (3.5-5.1)
[2020-12-17] MEDS ORDERED: LACTATED RINGERS 1000ML 1,000 ML IV SCH (09:45)
[2020-12-17] MEDS ORDERED: ALBUMIN (HUMAN) 25% 50 ML IV SCH (09:45)
[2020-12-17] MEDS: FLUTICASONE/VILANTEROL 1 EACH BLST.W.DEV IH SCH (10:00)
[2020-12-17 10:14] LABS: ABG BASE EXCESS 0.2 mmol/L (-2.0-3.0); ABG HCO3 24.6 mmol/L (21.0-28.0); ABG OXYGEN SATURATION 92.3 % (95.0-99.0); ABG PCO2 39 mmHg (32-45)
[2020-12-17] MEDS: PANTOPRAZOLE 40 MG TAB DR PO SCH (10:24)
[2020-12-17] MEDS: INSULIN HUMULIN R 100 UNIT/ML 3ML SQ SCH ×3 (10:24→16:55)
[2020-12-17] MEDS: GABAPENTIN 300 MG CAPSULE PO SCH ×3 (10:25→21:12)
[2020-12-17] MEDS: Vitamin B Complex/Vit C/Folic Acid PO SCH (10:25)
[2020-12-17] MEDS: SENNOSIDES 8.6 MG TABLET PO SCH (10:25)
[2020-12-17] MEDS: FLUTICASONE PROPIONATE 50MCG/SPRAY 16 GM BOTTLE EN SCH (10:25)
[2020-12-17] MEDS: SOLU-MEDROL 125MG VIAL IVP SCH (10:25)
[2020-12-17] MEDS: POLYETHYLENE GLYCOL 3350 17 GM POWD.PACK PO SCH (10:25)
[2020-12-17] MEDS: BIOTENE 44.3 ML SOLUTION MM SCH ×2 (10:26→21:12)
[2020-12-17] MEDS: DIPYRIDAMOLE 25 MG TABLET PO SCH (10:26)
[2020-12-17] MEDS ORDERED: AMIODARONE 150MG VIAL 150 MG in DEXTROSE 5%-WATER 100 ML IV SCH (12:45)
[2020-12-17] MEDS: MIDODRINE HCL 5 MG TABLET NG SCH ×2 (13:53→21:12)
[2020-12-17] MEDS: AMIODARONE 900MG VIAL 360 MG in DEXTROSE 5%-WATER 200 ML IV SCH ×2 (14:29→18:55)
[2020-12-17] MEDS: DOCUSATE NA 100MG/10ML UDCUP NG SCH ×2 (14:34→21:11)
[2020-12-17] MEDS: CEFEPIME HCL 1 GM VIAL IVP SCH (16:54)
[2020-12-17] MEDS: FAMOTIDINE 20MG VIAL IV SCH (21:11)
[2020-12-17] MEDS: INSULIN GLARGINE 100 UNITS/ML 10 ML VIAL SQ SCH (21:16)
[2020-12-18] VITALS (25 sets, daily range): BP systolic 94–151; BP diastolic 50–87
[2020-12-18] MEDS: INSULIN HUMULIN R 100 UNIT/ML 3ML SQ SCH ×4 (00:39→17:28)
[2020-12-18] MEDS: NACL NASAL SPRAY 120 SPRAY/BOTTLE NS SCH ×6 (01:10→20:02)
[2020-12-18] MEDS: AMIODARONE 900MG VIAL 360 MG in DEXTROSE 5%-WATER 200 ML IV SCH ×2 (03:10→15:08)
[2020-12-18] MEDS: ALBUTEROL INHALER 90MCG/INH IH SCH (03:11)
[2020-12-18] MEDS: CLOTRIMAZOLE 10 MG TROCHE MM SCH ×4 (03:12→20:01)
[2020-12-18] MEDS: METOCLOPRAMIDE 10 MG/2 ML VIAL IVP SCH ×3 (03:12→19:59)
[2020-12-18] MEDS: LACTULOSE 20 GM/30 ML UDCUP PO SCH ×3 (04:14→20:00)
[2020-12-18 04:57] LABS: BASOPHILS % (AUTO) 0.4 % (0.0-5.0); HEMATOCRIT 39.1 % (36-48); LYMPHOCYTES % (AUTO) 5.7 % (21.0-51.0); MEAN CORPUSCULAR HEMOGLOBIN 28.4 pg (27.0-33.0); MEAN CORPUSCULAR HGB CONC 32.5 g/dL (32.0-36.0); MEAN CORPUSCULAR VOLUME 87.5 fL (79-99); NEUTROPHILS % (AUTO) 87.4 % (40.0-77.0); NUCLEATED RED BLOOD CELLS 1.9 % (0.0-0.19); PLATELET COUNT (AUTO) 265 K/uL (130-400); RED BLOOD CELL COUNT(AUTO) 4.47 MIL/uL (4.00-5.50); RED CELL DISTRIBUTION WIDTH 13.9 % (11.0-15.5); WHITE BLOOD COUNT (AUTO) 20.6 K/uL (4.8-10.8)
[2020-12-18] MEDS: DOCUSATE NA 100MG/10ML UDCUP NG SCH ×3 (05:10→20:01)
[2020-12-18] MEDS: LEVOTHYROXINE 50 MCG TABLET PO SCH (05:10)
[2020-12-18 05:19] LABS: ALBUMIN 2.6 g/dL (3.5-5.0); BILIRUBIN,TOTAL 0.6 mg/dL (0.2-1.0); CREATININE 3.4 mg/dL (0.5-1.5); CRP QUANTITATIVE 65.2 mg/L (0.00-9.0); MAGNESIUM 2.8 mg/dL (1.80-2.40); POTASSIUM 3.8 mmol/L (3.5-5.1); TOTAL PROTEIN, SERUM 6.1 g/dL (6.0-8.3)
[2020-12-18] MEDS: MIDODRINE HCL 5 MG TABLET NG SCH ×4 (09:00→20:01)
[2020-12-18] MEDS: POLYETHYLENE GLYCOL 3350 17 GM POWD.PACK PO SCH (09:18)
[2020-12-18] MEDS: SENNOSIDES 8.6 MG TABLET PO SCH (09:18)
[2020-12-18] MEDS: DIPYRIDAMOLE 25 MG TABLET PO SCH (09:18)
[2020-12-18] MEDS: GABAPENTIN 300 MG CAPSULE PO SCH ×3 (09:18→20:01)
[2020-12-18] MEDS: Vitamin B Complex/Vit C/Folic Acid PO SCH (09:19)
[2020-12-18] MEDS: BIOTENE 44.3 ML SOLUTION MM SCH ×2 (09:19→20:01)
[2020-12-18] MEDS: FLUTICASONE PROPIONATE 50MCG/SPRAY 16 GM BOTTLE EN SCH (09:19)
[2020-12-18] MEDS: SOLU-MEDROL 125MG VIAL IVP SCH (09:19)
[2020-12-18] MEDS: ENOXAPARIN SODIUM 30 MG/0.3 ML SQ SCH (09:19)
[2020-12-18] MEDS: FLUTICASONE/VILANTEROL 1 EACH BLST.W.DEV IH SCH (09:20)
[2020-12-18] MEDS ORDERED: FUROSEMIDE 40MG VIAL IV SCH (10:29)
[2020-12-18] MEDS: ALBUMIN (HUMAN) 25% 50 ML IV SCH ×2 (13:21→20:05)
[2020-12-18] MEDS: CEFEPIME HCL 1 GM VIAL IVP SCH (17:29)
[2020-12-18] MEDS: FAMOTIDINE 20MG VIAL IV SCH (20:00)
[2020-12-18] MEDS: NYSTATIN 15 GM POWDER TP SCH (20:01)
[2020-12-18] MEDS: INSULIN GLARGINE 100 UNITS/ML 10 ML VIAL SQ SCH (20:08)
[2020-12-18] MEDS: ONDANSETRON 4MG INJ IVP PRN (20:19)
[2020-12-18] MEDS: HYDROMORPHONE 0.5 MG SYG (0.5MG/0.5ML) IVP PRN (20:19)
[2020-12-19] VITALS (31 sets, daily range): BP systolic 82–151; BP diastolic 31–71
[2020-12-19] MEDS: INSULIN HUMULIN R 100 UNIT/ML 3ML SQ SCH ×4 (00:19→17:18)
[2020-12-19] MEDS: NACL NASAL SPRAY 120 SPRAY/BOTTLE NS SCH ×6 (02:26→20:10)
[2020-12-19] MEDS: METOCLOPRAMIDE 10 MG/2 ML VIAL IVP SCH ×3 (03:47→19:49)
[2020-12-19] MEDS: CLOTRIMAZOLE 10 MG TROCHE MM SCH ×4 (03:48→19:51)
[2020-12-19] MEDS: LACTULOSE 20 GM/30 ML UDCUP PO SCH ×3 (04:45→19:50)
[2020-12-19 04:47] LABS: BASOPHILS % (AUTO) 0.7 % (0.0-5.0); EOSINOPHILS % (AUTO) 1.1 % (0.0-8.0); HEMATOCRIT 38.9 % (36-48); LYMPHOCYTES % (AUTO) 5.9 % (21.0-51.0); MEAN CORPUSCULAR HEMOGLOBIN 28.3 pg (27.0-33.0); MEAN CORPUSCULAR HGB CONC 31.9 g/dL (32.0-36.0); MEAN CORPUSCULAR VOLUME 88.8 fL (79-99); MONOCYTES % (AUTO) 3.3 % (3.0-13.0); NEUTROPHILS % (AUTO) 84.3 % (40.0-77.0); NUCLEATED RED BLOOD CELLS 4.6 % (0.0-0.19); PLATELET COUNT (AUTO) 214 K/uL (130-400); RED BLOOD CELL COUNT(AUTO) 4.38 MIL/uL (4.00-5.50); RED CELL DISTRIBUTION WIDTH 14.3 % (11.0-15.5); WHITE BLOOD COUNT (AUTO) 18.1 K/uL (4.8-10.8)
[2020-12-19 05:15] LABS: BILIRUBIN,TOTAL 0.6 mg/dL (0.2-1.0); CREATININE 3.6 mg/dL (0.5-1.5); CRP QUANTITATIVE 70.3 mg/L (0.00-9.0); POTASSIUM 3.9 mmol/L (3.5-5.1); TOTAL PROTEIN, SERUM 6.4 g/dL (6.0-8.3)
[2020-12-19] MEDS: DOCUSATE NA 100MG/10ML UDCUP NG SCH ×3 (05:36→20:10)
[2020-12-19] MEDS: ALBUMIN (HUMAN) 25% 50 ML IV SCH ×3 (05:56→20:50)
[2020-12-19] MEDS: LEVOTHYROXINE 50 MCG TABLET PO SCH (05:57)
[2020-12-19 06:47] LABS: ABG BASE EXCESS -2.5 mmol/L (-2.0-3.0); ABG HCO3 23.9 mmol/L (21.0-28.0); ABG OXYGEN SATURATION 86.9 % (95.0-99.0); ABG PCO2 47 mmHg (32-45)
[2020-12-19] MEDS: FLUTICASONE PROPIONATE 50MCG/SPRAY 16 GM BOTTLE EN SCH (08:30)
[2020-12-19] MEDS: SOLU-MEDROL 125MG VIAL IVP SCH (08:30)
[2020-12-19] MEDS: DIPYRIDAMOLE 25 MG TABLET PO SCH (09:00)
[2020-12-19] MEDS: POLYETHYLENE GLYCOL 3350 17 GM POWD.PACK PO SCH (09:00)
[2020-12-19] MEDS: NYSTATIN 15 GM POWDER TP SCH ×2 (09:00→19:52)
[2020-12-19] MEDS: ENOXAPARIN SODIUM 30 MG/0.3 ML SQ SCH (09:00)
[2020-12-19] MEDS: BIOTENE 44.3 ML SOLUTION MM SCH ×2 (09:00→19:51)
[2020-12-19] MEDS: Vitamin B Complex/Vit C/Folic Acid PO SCH (09:00)
[2020-12-19] MEDS: SENNOSIDES 8.6 MG TABLET PO SCH (09:00)
[2020-12-19] MEDS: MIDODRINE HCL 5 MG TABLET NG SCH ×3 (09:00→19:50)
[2020-12-19] MEDS: GABAPENTIN 300 MG CAPSULE PO SCH ×3 (09:00→19:50)
[2020-12-19] MEDS: AMIODARONE 200 MG TABLET PO SCH ×2 (11:08→19:50)
[2020-12-19] MEDS ORDERED: FUROSEMIDE 40MG VIAL IV SCH ×2 (11:45→16:00)
[2020-12-19] MEDS: CEFEPIME HCL 1 GM VIAL IVP SCH (16:58)
[2020-12-19] MEDS: FAMOTIDINE 20MG VIAL IV SCH (19:50)
[2020-12-19] MEDS: INSULIN GLARGINE 100 UNITS/ML 10 ML VIAL SQ SCH (19:58)
[2020-12-20] VITALS (46 sets, daily range): BP systolic 65–255; BP diastolic 23–86
[2020-12-20 00:27] LABS: ABG BASE EXCESS -12.9 mmol/L (-2.0-3.0); ABG HCO3 21.3 mmol/L (21.0-28.0); ABG OXYGEN SATURATION 77.6 % (95.0-99.0); ABG PCO2 98 mmHg (32-45)
[2020-12-20] MEDS ORDERED: 0.9% NACL 250ML 250 ML IV ONE (00:43)
[2020-12-20] MEDS: INSULIN HUMULIN R 100 UNIT/ML 3ML SQ SCH ×2 (00:56→06:18)
[2020-12-20] MEDS ORDERED: PROPOFOL 500 MG/ 50ML VIAL IV SCH (01:15)
[2020-12-20] MEDS ORDERED: FENTANYL CITRATE PF 0.05 MG/ML 1,000 MCG in 0.9%NACL 100ML 100 ML IVPB SCH (01:15)
[2020-12-20] MEDS ORDERED: PROPOFOL 1000 MG/100 ML 100 ML IV ONE ×2 (01:23→06:42)
[2020-12-20] MEDS ORDERED: NOREPINEPHRIN 4MG/NS 250ML 250 ML IV ONE (01:24)
[2020-12-20] MEDS ORDERED: NOREPINEPHRIN 4MG/NS 250ML 250 ML IV SCH (01:45)
[2020-12-20] MEDS: NACL NASAL SPRAY 120 SPRAY/BOTTLE NS SCH ×2 (02:41→05:49)
[2020-12-20] MEDS: METOCLOPRAMIDE 10 MG/2 ML VIAL IVP SCH ×2 (02:43→10:57)
[2020-12-20] MEDS: CLOTRIMAZOLE 10 MG TROCHE MM SCH (02:46)
[2020-12-20] MEDS ORDERED: FENTANYL 2500MCG+NS 250ML 250 ML IV ONE (03:31)
[2020-12-20 03:34] LABS: ABG HCO3 20.7 mmol/L (21.0-28.0); ABG OXYGEN SATURATION 91.8 % (95.0-99.0); ABG PCO2 94 mmHg (32-45)
[2020-12-20 04:18] LABS: HEMATOCRIT 41.3 % (36-48); MEAN CORPUSCULAR HEMOGLOBIN 28.9 pg (27.0-33.0); MEAN CORPUSCULAR HGB CONC 30.8 g/dL (32.0-36.0); MEAN CORPUSCULAR VOLUME 93.9 fL (79-99); NUCLEATED RED BLOOD CELLS 11.6 % (0.0-0.19); PLATELET COUNT (AUTO) 205 K/uL (130-400); RED CELL DISTRIBUTION WIDTH 14.2 % (11.0-15.5); WHITE BLOOD COUNT (AUTO) 17.9 K/uL (4.8-10.8)
[2020-12-20] MEDS: LACTULOSE 20 GM/30 ML UDCUP PO SCH ×2 (04:45→10:58)
[2020-12-20 04:48] LABS: ALBUMIN 3.2 g/dL (3.5-5.0); BILIRUBIN,TOTAL 0.8 mg/dL (0.2-1.0); CREATININE 4.1 mg/dL (0.5-1.5); POTASSIUM 5.2 mmol/L (3.5-5.1); TOTAL PROTEIN, SERUM 6.3 g/dL (6.0-8.3)
[2020-12-20 05:02] LABS: BAND NEUTROPHILS % (MANUAL) 32 % (0-2); LYMPHOCYTES % (MANUAL) 11 % (22-44); MAN.DIFF COMMENT-IMPRESSION MANUAL DIFFERENTIAL; METAMYELOCYTES % 5 % (0-0); MONOCYTES % (MANUAL) 7 % (2-9); MYELOCYTES % 1 % (0-0); SEGMENTED NEUTROPHILS % 44 % (40-70)
[2020-12-20] MEDS: LEVOTHYROXINE 50 MCG TABLET PO SCH (05:30)
[2020-12-20] MEDS: DOCUSATE NA 100MG/10ML UDCUP NG SCH ×2 (05:49→10:58)
[2020-12-20 06:45] LABS: ABG BASE EXCESS -16.1 mmol/L (-2.0-3.0); ABG HCO3 18.7 mmol/L (21.0-28.0); ABG PCO2 101 mmHg (32-45)
[2020-12-20 06:46] LABS: ABG OXYGEN SATURATION 93.1 % (95.0-99.0)
[2020-12-20] MEDS ORDERED: SODIUM BICARB 50MEQ 50ML VIAL IV SCH (08:00)
[2020-12-20 08:09] LABS: ABG BASE EXCESS -8.8 mmol/L (-2.0-3.0); ABG HCO3 26.8 mmol/L (21.0-28.0); ABG OXYGEN SATURATION 89.9 % (95.0-99.0); ABG PCO2 140 mmHg (32-45)
[2020-12-20] MEDS ORDERED: SODIUM BICARB 8.4% 50ML SYRING 150 MEQ in 0.9%NACL 1000ML 1,000 ML IVP SCH (08:42)
[2020-12-20] MEDS ORDERED: DEXTROSE 50%-WATER 50 ML DISP.SYRIN IV ONE (08:58)
[2020-12-20] MEDS: ENOXAPARIN SODIUM 30 MG/0.3 ML SQ SCH (09:00)
[2020-12-20] MEDS ORDERED: DOCUSATE NA 100MG/10ML UDCUP NG SCH (09:00)
[2020-12-20 09:32] LABS: ABG BASE EXCESS -5.2 mmol/L (-2.0-3.0); ABG HCO3 31.3 mmol/L (21.0-28.0); ABG PCO2 > 155 mmHg (32-45)
[2020-12-20] MEDS ORDERED: CISATRACURIUM BESYLATE 100 MG in 0.9%NACL 100ML 100 ML IV SCH (10:06)
[2020-12-20] MEDS ORDERED: NOREPINEPHRINE BITARTRATE 32 MG in 0.9% NACL 250ML 250 ML IV SCH (10:30)
[2020-12-20] MEDS: POLYETHYLENE GLYCOL 3350 17 GM POWD.PACK PO SCH (10:56)
[2020-12-20] MEDS: Vitamin B Complex/Vit C/Folic Acid PO SCH (10:57)
[2020-12-20] MEDS: MIDODRINE HCL 5 MG TABLET NG SCH ×2 (10:57→12:26)
[2020-12-20] MEDS: GABAPENTIN 300 MG CAPSULE PO SCH ×2 (10:57→12:26)
[2020-12-20] MEDS: DIPYRIDAMOLE 25 MG TABLET PO SCH (10:57)
[2020-12-20] MEDS: SOLU-MEDROL 125MG VIAL IVP SCH (10:57)
[2020-12-20] MEDS: AMIODARONE 200 MG TABLET PO SCH (10:58)
[2020-12-20] MEDS: SENNOSIDES 8.6 MG TABLET PO SCH (10:58)
[2020-12-20] MEDS: NYSTATIN 15 GM POWDER TP SCH (10:58)
[2020-12-20 12:26] LABS: BASOPHILS % (AUTO) 0.2 % (0.0-5.0); EOSINOPHILS % (AUTO) 2.5 % (0.0-8.0); HEMATOCRIT 39.4 % (36-48); LYMPHOCYTES % (AUTO) 12.8 % (21.0-51.0); MEAN CORPUSCULAR HEMOGLOBIN 29.7 pg (27.0-33.0); MEAN CORPUSCULAR VOLUME 95.9 fL (79-99); MONOCYTES % (AUTO) 2.9 % (3.0-13.0); NEUTROPHILS % (AUTO) 76.6 % (40.0-77.0); PLATELET COUNT (AUTO) 60 K/uL (130-400); RED BLOOD CELL COUNT(AUTO) 4.11 MIL/uL (4.00-5.50); RED CELL DISTRIBUTION WIDTH 14.1 % (11.0-15.5); WHITE BLOOD COUNT (AUTO) 17.4 K/uL (4.8-10.8)
[2020-12-20 12:38] LABS: INR 1.05 (0.85-1.15); PROTHROMBIN TIME 11.4 SEC (9.6-11.6)
[2020-12-20 12:39] LABS: PARTIAL THROMBOPLASTIN TIME 24.3 SEC (26.3-35.5)
[2020-12-20] MEDS ORDERED: VASOPRESSIN 40 UNITS in 0.9%NACL 50ML 40 ML IV SCH (12:45)
[2020-12-20 12:46] LABS: ALBUMIN 2.4 g/dL (3.5-5.0); CREATININE 4.4 mg/dL (0.5-1.5); PHOSPHORUS 13.1 mg/dL (2.5-4.9); POTASSIUM 5.8 mmol/L (3.5-5.1); TOTAL PROTEIN, SERUM 5.1 g/dL (6.0-8.3)
[2020-12-20 12:59] LABS: ABG BASE EXCESS -14.2 mmol/L (-2.0-3.0); ABG HCO3 21.4 mmol/L (21.0-28.0); ABG OXYGEN SATURATION 97.1 % (95.0-99.0); ABG PCO2 121 mmHg (32-45)
[2020-12-20 13:01] LABS: ABG BASE EXCESS -15.8 mmol/L (-2.0-3.0); ABG HCO3 19.1 mmol/L (21.0-28.0); ABG OXYGEN SATURATION 96.9 % (95.0-99.0); ABG PCO2 104 mmHg (32-45)
[2020-12-20] MEDS ORDERED: KAYEXALATE 15GM/60ML NG SCH (13:15)
[2020-12-20] MEDS ORDERED: CALCIUM GLUC 1GM/10ML VIAL IV SCH (13:15)
[2020-12-20] MEDS ORDERED: INSULIN HUMULIN R 100 UNIT/ML 3ML IV SCH (13:30)
[2020-12-20] MEDS ORDERED: INSULIN HUMULIN R 100 UNIT/ML 3ML ONE (13:38)
[2020-12-20] MEDS ORDERED: PHENYLEPHRINE HCL 100 MG in 0.9% NACL 250ML 250 ML IV SCH (14:30)
[2020-12-20] MEDS ORDERED: ACETAMINOPHEN 325 MG TAB PO PRN (16:00)
[2020-12-20] MEDS ORDERED: HALOPERIDOL INJ 5 MG/ML VIAL IV PRN (16:00)
[2020-12-20] MEDS ORDERED: ONDANSETRON 4MG TABLET PO PRN (16:00)
[2020-12-20] MEDS ORDERED: HYDROMORPHONE 1 MG INJ IVP PRN (16:00)
[2020-12-20] MEDS ORDERED: ARTIFICAL TEARS SOL 15 ML OU PRN (16:00)
[2020-12-20] MEDS ORDERED: LORAZEPAM 2 MG/ML 1 ML VIAL IVP PRN (16:00)
[2020-12-20] MEDS ORDERED: ACETAMINOPHEN 650 MG SUPPOSITORY RC PRN (16:00)
[2020-12-20] MEDS ORDERED: HALOPERIDOL 1 MG TABLET PO PRN (16:00)
[2020-12-20] MEDS ORDERED: MORPHINE 20MG/ML SOLN 0.25ML PO PRN ×2 (16:00)
[2020-12-20] MEDS ORDERED: SCOPOLAMINE HYDROBROMIDE 1 EACH ADH..PATCH TD SCH (18:00)
== END 2020-12-20 16:28 | disposition expired | DRG 208 ==
LOC: EDH 09:51 → EDHIP 12:12 → 4BH 11-20 23:34 → 2AH 11-22 17:29 → 2CV 12-16 12:16
PROVIDERS: ADMIT Internal Medicine; ATTEND Internal Medicine
PROC: 5A0935A Assistance with Respiratory Ventilation, Less than 24 Consecutive Hours, High Flow/Velocity Cannula (ICD-10-PCS; 2020-11-19)
PROC: XW13325 Transfusion of Convalescent Plasma (Nonautologous) into Peripheral Vein, Percutaneous Approach, New Technology Group 5 (ICD-10-PCS; 2020-11-21)
PROC: 5A0935A Assistance with Respiratory Ventilation, Less than 24 Consecutive Hours, High Flow/Velocity Cannula (ICD-10-PCS; 2020-11-22)
PROC: XW033E5 Introduction of Remdesivir Anti-infective into Peripheral Vein, Percutaneous Approach, New Technology Group 5 (ICD-10-PCS; 2020-11-24)
PROC: 5A0935A Assistance with Respiratory Ventilation, Less than 24 Consecutive Hours, High Flow/Velocity Cannula (ICD-10-PCS; 2020-11-24)
PROC: 5A0935A Assistance with Respiratory Ventilation, Less than 24 Consecutive Hours, High Flow/Velocity Cannula (ICD-10-PCS; 2020-11-25)
PROC: 5A0955A Assistance with Respiratory Ventilation, Greater than 96 Consecutive Hours, High Flow/Velocity Cannula (ICD-10-PCS; 2020-11-26)
PROC: 5A1935Z Respiratory Ventilation, Less than 24 Consecutive Hours (ICD-10-PCS; 2020-12-19)
PROC: 0BH17EZ Insertion of Endotracheal Airway into Trachea, Via Natural or Artificial Opening (ICD-10-PCS; 2020-12-19)
PROC: 05HY33Z Insertion of Infusion Device into Upper Vein, Percutaneous Approach (ICD-10-PCS; principal; 2020-12-20)
PROC: 06HY33Z Insertion of Infusion Device into Lower Vein, Percutaneous Approach (ICD-10-PCS; 2020-12-20)
DX: U07.1 COVID-19 (principal); J12.82 Pneumonia due to coronavirus disease 2019; J80 Acute respiratory distress syndrome; A41.9 Sepsis, unspecified organism; N17.0 Acute kidney failure with tubular necrosis; R65.21 Severe sepsis with septic shock; E87.1 Hypo-osmolality and hyponatremia; E87.3 Alkalosis; N17.9 Acute kidney failure, unspecified; G93.40 Encephalopathy, unspecified; D68.59 Other primary thrombophilia; E87.4 Mixed disorder of acid-base balance; J44.0 Chronic obstructive pulmonary disease with (acute) lower respiratory infection; J93.83 Other pneumothorax; N39.0 Urinary tract infection, site not specified; E86.1 Hypovolemia; E78.5 Hyperlipidemia, unspecified; E11.22 Type 2 diabetes mellitus with diabetic chronic kidney disease; E03.9 Hypothyroidism, unspecified; E66.9 Obesity, unspecified; Z68.35 Body mass index [BMI] 35.0-35.9, adult; E78.00 Pure hypercholesterolemia, unspecified; E87.5 Hyperkalemia; E87.70 Fluid overload, unspecified; F32.9 Major depressive disorder, single episode, unspecified; I12.9 Hypertensive chronic kidney disease with stage 1 through stage 4 chronic kidney disease, or unspecified chronic kidney disease; I25.10 Atherosclerotic heart disease of native coronary artery without angina pectoris; I48.0 Paroxysmal atrial fibrillation; J98.2 Interstitial emphysema; K12.30 Oral mucositis (ulcerative), unspecified; K59.00 Constipation, unspecified; N18.9 Chronic kidney disease, unspecified; R04.0 Epistaxis; R62.7 Adult failure to thrive; Z79.52 Long term (current) use of systemic steroids; Z87.01 Personal history of pneumonia (recurrent)
CPT/HCPCS: 31500; 36415; 36430; 36600; 71045; 71250; 74018; 74176; 80048; 80053; 80076; 81001; 82248; 82435; 82550; 82728; 82803; 82947; 82948; 83036; 83605; 83615; 83735; 83874; 83880; 84100; 84132; 84145; 84295; 84439; 84443; 84484; 85018; 85025; 85027; 85378; 85610; 85730; 86140; 86900; 86901; 86927; 87040; 87077; 87088; 87186; 87426; 87804; 93005; 93306; 93356; 93970; 94002; 94003; 94660; 94760; 97039; G0378; G0481; J0282; J0692; J0696; J1100; J1170; J1200; J1650; J1815; J1940; J2370; J2405; J2704; J2765; J2920; J2930; J3010; J3490; J7030; J7040; J7050; J7060; J7070; J7120; P9047